=== PATIENT | female | born 1975 | race Caucasian/White ===

== ENCOUNTER 2018-04-13 22:03 | Inpatient (IN) | payer MEDICAID ==
[~2018-04-13] VITALS: Ht 167.6 cm; Wt 77.3 kg
[~2018-04-13 22:03] MED LIST: ALBU6.7H INH; BAC10T PO; DEXL60CA3 PO; DOCU-28 PO; DULR RC; MULT-227 PO; OXYB5TAB11 PO; VITC500T PO
[2018-04-13] MEDS ORDERED: normal saline 1000ML IV soln IV ONE (22:10)
[2018-04-13] MEDS ORDERED: CefTRIAXone 2gm/D5W 50ml 50 ML IV ONE (22:10)
[2018-04-13] MEDS ORDERED: HYOS0.1275 PO (22:52)
[2018-04-13] MEDS ORDERED: HYDR2TAB28 PO (22:52)
[2018-04-13] MEDS ORDERED: TIZA4TAB11 PO (22:52)
[2018-04-13] MEDS ORDERED: ONDA4TAB6 PO (22:52)
[2018-04-13] MEDS ORDERED: OXYC-658 PO (22:52)
[2018-04-13] MEDS ORDERED: ACET500C5 PO (22:52)
[2018-04-13] MEDS ORDERED: BACL20TA PO (22:52)
[2018-04-13] MEDS ORDERED: OXYB5TAB11 PO (22:52)
[2018-04-13] MEDS ORDERED: morphine 4 MG/ML inj SYRINge IV ONE (23:30)
[2018-04-13] MEDS ORDERED: ondansetron/PF 4mg/2ml inj IM ONE (23:30)
[2018-04-14] MEDS ORDERED: fentaNYL/PF 50MCG/1 ML 2ML syringe IV ONE (00:10)
[2018-04-14 01:49] LABS: BASOPHILS % (AUTO) 0.4 % (0-1); EOSINOPHILS # (AUTO) 0.3 X10'3 (0-0.9); EOSINOPHILS % (AUTO) 2.4 % (0-6); HEMATOCRIT 37.1 % (35.0-45.0); HEMOGLOBIN 11.9 g/dl (12.0-16.0); LYMPHOCYTES # (AUTO) 2.2 X10'3 (1.1-4.8); LYMPHOCYTES % (AUTO) 18.6 % (21-51); MEAN CORPUSCULAR HGB CONC 32.1 % (33.0-36.5); MEAN CORPUSCULAR VOLUME 84.1 FL (78-98); MEAN PLATELET VOLUME 8.9 FL (7.4-10.4); MONOCYTES # (AUTO) 0.5 X10'3 (0-0.9); MONOCYTES % (AUTO) 4.5 % (2-12); NEUTROPHILS % (AUTO) 74.1 % (42-75); PLATELET COUNT 371 X10'3 (140-440); RED BLOOD COUNT 4.41 X10'6 (4.20-5.60); RED CELL DISTRIBUTION WIDTH 13.9 % (11.5-14.5)
[2018-04-14 01:54] LABS: PARTIAL THROMBOPLASTIN TIME 29 SECONDS (22-32); PROTHROMBIN TIME 10.4 SECONDS (9.0-12.0)
[2018-04-14 01:58] LABS: ALANINE AMINOTRANSFERASE 16 U/L (12-78); ALBUMIN 2.6 G/DL (3.4-5.0); ALBUMIN/GLOBULIN RATIO 0.5 (1.1-1.5); ALKALINE PHOSPHATASE 70 IU/L (46-116); ANION GAP 16 (8-16); ASPARTATE AMINO TRANSFERASE 21 U/L (10-37); BILIRUBIN,TOTAL 0.3 MG/DL (0.1-1.0); BLOOD UREA NITROGEN 6 MG/DL (7-18); BUN/CREATININE RATIO 9.5 (6.6-38.0); CALCIUM 8.3 MG/DL (8.5-10.1); CHLORIDE 105 MMOL/L (99-107); CREATININE 0.63 MG/DL (0.40-0.90); GLUCOSE 70 MG/DL (70-104); MAGNESIUM 1.7 MG/DL (1.5-2.4); POTASSIUM 3.3 MMOL/L (3.5-5.1); SODIUM 140 MMOL/L (135-145); TOTAL CARBON DIOXIDE 19.5 MMOL/L (24-32); TOTAL PROTEIN 7.6 G/DL (6.4-8.2); eGFR > 90 ML/MIN
[2018-04-14] MEDS ORDERED: magnesium hydroxide 30ml (MOM) UD suspension PO PRN (02:05)
[2018-04-14] MEDS ORDERED: acetaminophen 325mg tablet PO PRN ×2 (02:05)
[2018-04-14] MEDS: normal saline 1000ml 1,000 ML IV SCH ×3 (02:05→22:05)
[2018-04-14] MEDS ORDERED: potassium Cl 20 mEq SR tablet PO PRN ×2 (02:05)
[2018-04-14] MEDS ORDERED: ondansetron/PF 4mg/2ml inj IV PRN (02:05)
[2018-04-14] MEDS ORDERED: potassium Cl 40MEQ/NS 500ml 500 ML IV PRN ×2 (02:05)
[2018-04-14] MEDS ORDERED: morphine 4 MG/ML inj SYRINge IV PRN (02:05)
[2018-04-14] MEDS ORDERED: diphenhydrAMINE 50 mg/ml inj IV PRN (02:05)
[2018-04-14] MEDS ORDERED: mag hydrox/Alum hydrox/simeth 30ml oral suspension PO PRN (02:05)
[2018-04-14 02:40] LABS: URINE HCG NEGATIVE (NEG)
[2018-04-14 02:41] LABS: CLARITY,URINE CLOUDY (Clear); COLOR,URINE AMBER (Yellow); GLUCOSE, URINE NEGATIVE (Neg); KETONES,URINE 40 mg/dl (Neg); LEUKOCYTE ESTERASE ,URINE MODERATE (Neg); NITRITES, URINE POSITIVE (Neg); OCCULT BLOOD,URINE MODERATE (Neg); PH,URINE >=9.0 (4.8-8.0); PROTEIN,URINE 100 mg/dl (Neg)
[2018-04-14 02:44] LABS: UA COLLECTION TYPE FOLEY CATH
[2018-04-14 03:00] VITALS: BP 131/84
[2018-04-14 03:07] LABS: BACTERIA,URINE 2+ /HPF (Neg); SQUAMOUS EPITHELIAL CELL,UR FEW /LPF (FEW)
[2018-04-14 03:08] LABS: TRIPLE PHOSPHATE CRYST 4+ /HPF (NEGATIVE)
[2018-04-14] MEDS: levoFLOXACIN-Levaquin 750MG/D5 150 ML IV SCH ×2 (03:09→20:43)
[2018-04-14] MEDS ORDERED: baclofen 10mg tablet PO PRN (03:10)
[2018-04-14] MEDS ORDERED: tizanidine 4mg tablet PO PRN (03:20)
[2018-04-14] MEDS: morphine 4 MG/ML inj SYRINge IV PRN ×4 (07:07→22:09)
[2018-04-14] MEDS: K and/or MAG REPLACEMENT MC SCH (07:10)
[2018-04-14] MEDS: ondansetron 4mg rapidly disintigrating tab PO SCH ×2 (07:13→16:47)
[2018-04-14 07:31] VITALS: BP 100/61
[2018-04-14] MEDS ORDERED: hyoscyamine 0.125mg TAB.SUBL SL SCH (08:00)
[2018-04-14] MEDS: enoxaparin 40mg/0.4ml syringe SUBCUT SCH (08:00)
[2018-04-14] MEDS: hyoscyamine 0.125mg TAB.SUBL SL SCH ×3 (08:46→20:44)
[2018-04-14] MEDS: baclofen 10mg tablet PO SCH ×4 (08:46→20:44)
[2018-04-14] MEDS: docusate sod 100mg capsule PO SCH ×2 (08:48→20:43)
[2018-04-14] MEDS: multivitamins, therapeutics tablet PO SCH (08:48)
[2018-04-14] MEDS: tizanidine 4mg tablet PO SCH ×3 (08:48→20:44)
[2018-04-14] MEDS: lactobacillus rhamnosus 10,000 MMU CELLS/CAPSULE PO SCH ×2 (08:48→20:43)
[2018-04-14] MEDS: oxybutynin 5mg tablet PO SCH ×3 (08:50→20:44)
[2018-04-14 19:30] VITALS: BP 114/77
[2018-04-14] MEDS ORDERED: temazepam 15mg capsule PO PRN (21:00)
[2018-04-14 23:30] VITALS: BP 135/88
[2018-04-15] MEDS: ondansetron 4mg rapidly disintigrating tab PO SCH ×3 (00:12→16:27)
[2018-04-15] MEDS: normal saline 1000ml 1,000 ML IV SCH ×3 (02:33→23:01)
[2018-04-15] MEDS: morphine 4 MG/ML inj SYRINge IV PRN ×5 (02:33→20:30)
[2018-04-15] MEDS: hyoscyamine 0.125mg TAB.SUBL SL SCH ×4 (02:33→20:30)
[2018-04-15] MEDS: tizanidine 4mg tablet PO SCH ×4 (02:48→20:36)
[2018-04-15] MEDS: baclofen 10mg tablet PO SCH ×4 (02:48→20:29)
[2018-04-15] MEDS: HYDROcodone/acetaminophen 5mg/325mg tablet PO PRN (04:45)
[2018-04-15 05:06] LABS: BASOPHILS % (AUTO) 0.5 % (0-1); EOSINOPHILS # (AUTO) 0.4 X10'3 (0-0.9); EOSINOPHILS % (AUTO) 6.2 % (0-6); HEMATOCRIT 33.1 % (35.0-45.0); HEMOGLOBIN 10.9 g/dl (12.0-16.0); LYMPHOCYTES # (AUTO) 1.5 X10'3 (1.1-4.8); LYMPHOCYTES % (AUTO) 20.5 % (21-51); MEAN CORPUSCULAR HEMOGLOBIN 27.6 PG (27.0-31.0); MEAN CORPUSCULAR VOLUME 83.6 FL (78-98); MEAN PLATELET VOLUME 8.5 FL (7.4-10.4); MONOCYTES # (AUTO) 0.5 X10'3 (0-0.9); MONOCYTES % (AUTO) 7.3 % (2-12); NEUTROPHILS # (AUTO) 4.8 X10'3 (1.8-7.7); NEUTROPHILS % (AUTO) 65.5 % (42-75); PLATELET COUNT 334 X10'3 (140-440); RED BLOOD COUNT 3.96 X10'6 (4.20-5.60); WHITE BLOOD COUNT 7.3 X10'3 (4.5-11.0)
[2018-04-15 05:21] LABS: ALBUMIN 2.2 G/DL (3.4-5.0); ANION GAP 9 (8-16); BLOOD UREA NITROGEN 4 MG/DL (7-18); CALCIUM 8.4 MG/DL (8.5-10.1); CHLORIDE 107 MMOL/L (99-107); GLUCOSE 81 MG/DL (70-104); POTASSIUM 3.7 MMOL/L (3.5-5.1); SODIUM 138 MMOL/L (135-145); TOTAL CARBON DIOXIDE 21.7 MMOL/L (24-32); eGFR > 90 ML/MIN
[2018-04-15 07:04] VITALS: BP 131/77
[2018-04-15] MEDS: K and/or MAG REPLACEMENT MC SCH (07:23)
[2018-04-15] MEDS: lactobacillus rhamnosus 10,000 MMU CELLS/CAPSULE PO SCH ×2 (07:35→20:28)
[2018-04-15] MEDS: multivitamins, therapeutics tablet PO SCH (07:35)
[2018-04-15] MEDS: oxybutynin 5mg tablet PO SCH ×3 (07:35→20:29)
[2018-04-15] MEDS: docusate sod 100mg capsule PO SCH ×2 (07:35→20:30)
[2018-04-15] MEDS: enoxaparin 40mg/0.4ml syringe SUBCUT SCH (07:41)
[2018-04-15 11:36] VITALS: BP 96/57
[2018-04-15] MEDS ORDERED: sulfacetamide 10% ophthalmic oint 3.5gm LEFTEYE SCH (16:00)
[2018-04-15] MEDS: sulfacetamide sodium 10% ophthalmic drops 5ML BOTTLE LEFTEYE SCH ×2 (16:27→20:31)
[2018-04-15 16:36] VITALS: BP 144/89
[2018-04-15 18:00] VITALS: BP 144/95
[2018-04-15 19:56] LABS: ABG BASE EXCESS -2.9 mmol/L (-2.0-3.0); ABG HCO3 21.4 mmol/L (22.0-26.0); ABG OXYGEN SATURATION 97.7 % (95-98); ABG PCO2 (T) 34.2 mmHg (32.0-45.0); ABG PO2 (T) 102.8 mmHg (83-108); FCOHb 0.3 % (0.5-1.5); FLOW 3 L/min; FMetHb 0.1 % (0.3-1.12); FO2Hb 97.3 % (94-100); PATIENT TEMPERATURE 36.3; RESPIRATORY RATE (OBSERVED) 22 b/min; TOTAL HEMOGLOBIN 11.7 G/dl (12.0-16.0)
[2018-04-15] MEDS: levoFLOXACIN-Levaquin 750MG/D5 150 ML IV SCH (20:31)
[2018-04-15 22:46] LABS: D-DIMER 1.13 MG/L FEU (0-0.50)
[2018-04-16] VITALS: BP 145/88
[2018-04-16] MEDS: sulfacetamide sodium 10% ophthalmic drops 5ML BOTTLE LEFTEYE SCH ×6 (00:07→19:41)
[2018-04-16] MEDS: ondansetron 4mg rapidly disintigrating tab PO SCH ×3 (00:07→15:36)
[2018-04-16] MEDS: morphine 4 MG/ML inj SYRINge IV PRN ×6 (00:15→20:45)
[2018-04-16] MEDS ORDERED: iohexol 350MG/ML 100ml bottle IV ONE (01:13)
[2018-04-16] MEDS: hyoscyamine 0.125mg TAB.SUBL SL SCH ×4 (02:40→19:43)
[2018-04-16] MEDS: tizanidine 4mg tablet PO SCH ×4 (02:40→19:42)
[2018-04-16] MEDS: baclofen 10mg tablet PO SCH ×4 (02:40→19:42)
[2018-04-16 06:56] VITALS: BP 115/81
[2018-04-16] MEDS: enoxaparin 40mg/0.4ml syringe SUBCUT SCH (07:20)
[2018-04-16] MEDS: K and/or MAG REPLACEMENT MC SCH (08:00)
[2018-04-16] MEDS: multivitamins, therapeutics tablet PO SCH (08:03)
[2018-04-16] MEDS: lactobacillus rhamnosus 10,000 MMU CELLS/CAPSULE PO SCH ×2 (08:04→19:42)
[2018-04-16] MEDS: oxybutynin 5mg tablet PO SCH ×3 (08:04→20:44)
[2018-04-16] MEDS: docusate sod 100mg capsule PO SCH ×2 (08:04→19:42)
[2018-04-16] MEDS: normal saline 1000ml 1,000 ML IV SCH ×2 (08:12→16:55)
[2018-04-16] MEDS ORDERED: bisacodyl 10mg suppository rectal RC ONE (09:30)
[2018-04-16 10:40] LABS: BASOPHILS % (AUTO) 0.4 % (0-1); EOSINOPHILS # (AUTO) 0.3 X10'3 (0-0.9); HEMATOCRIT 31.7 % (35.0-45.0); HEMOGLOBIN 10.5 g/dl (12.0-16.0); LYMPHOCYTES # (AUTO) 1.4 X10'3 (1.1-4.8); LYMPHOCYTES % (AUTO) 20.8 % (21-51); MEAN CORPUSCULAR HEMOGLOBIN 27.5 PG (27.0-31.0); MEAN CORPUSCULAR HGB CONC 33.2 % (33.0-36.5); MEAN PLATELET VOLUME 7.8 FL (7.4-10.4); MONOCYTES # (AUTO) 0.5 X10'3 (0-0.9); MONOCYTES % (AUTO) 8.2 % (2-12); NEUTROPHILS # (AUTO) 4.3 X10'3 (1.8-7.7); NEUTROPHILS % (AUTO) 65.6 % (42-75); PLATELET COUNT 359 X10'3 (140-440); RED BLOOD COUNT 3.81 X10'6 (4.20-5.60); RED CELL DISTRIBUTION WIDTH 14.6 % (11.5-14.5); WHITE BLOOD COUNT 6.5 X10'3 (4.5-11.0)
[2018-04-16 10:50] LABS: ALBUMIN 2.3 G/DL (3.4-5.0); ANION GAP 6 (8-16); BLOOD UREA NITROGEN 2 MG/DL (7-18); CALCIUM 8.3 MG/DL (8.5-10.1); CHLORIDE 108 MMOL/L (99-107); GLUCOSE 86 MG/DL (70-104); POTASSIUM 3.7 MMOL/L (3.5-5.1); SODIUM 140 MMOL/L (135-145); TOTAL CARBON DIOXIDE 25.9 MMOL/L (24-32); eGFR > 90 ML/MIN
[2018-04-16 11:29] VITALS: BP 117/71
[2018-04-16] MEDS ORDERED: bisacodyl 5mg tablet.DR PO PRN (13:05)
[2018-04-16] MEDS ORDERED: magnesium hydroxide 30ml (MOM) UD suspension PO PRN (13:05)
[2018-04-16 18:00] VITALS: BP 119/74
[2018-04-16] MEDS ORDERED: docusate sod 100mg capsule PO SCH (20:00)
[2018-04-16] MEDS: levoFLOXACIN-Levaquin 750MG/D5 150 ML IV SCH (20:44)
[2018-04-17] VITALS: BP 139/94
[2018-04-17] MEDS: sulfacetamide sodium 10% ophthalmic drops 5ML BOTTLE LEFTEYE SCH ×6 (01:02→20:12)
[2018-04-17] MEDS: ondansetron 4mg rapidly disintigrating tab PO SCH ×3 (01:02→17:09)
[2018-04-17] MEDS: morphine 4 MG/ML inj SYRINge IV PRN ×6 (01:03→21:58)
[2018-04-17] MEDS: hyoscyamine 0.125mg TAB.SUBL SL SCH ×4 (01:51→20:10)
[2018-04-17] MEDS: baclofen 10mg tablet PO SCH ×4 (01:51→20:09)
[2018-04-17] MEDS: tizanidine 4mg tablet PO SCH ×4 (01:51→20:10)
[2018-04-17] MEDS: normal saline 1000ml 1,000 ML IV SCH ×2 (03:36→14:13)
[2018-04-17 06:12] LABS: ALBUMIN 2.3 G/DL (3.4-5.0); ANION GAP 4 (8-16); BLOOD UREA NITROGEN 3 MG/DL (7-18); BUN/CREATININE RATIO 7.1 (6.6-38.0); CALCIUM 8.3 MG/DL (8.5-10.1); CHLORIDE 105 MMOL/L (99-107); CREATININE 0.42 MG/DL (0.40-0.90); GLUCOSE 87 MG/DL (70-104); POTASSIUM 3.8 MMOL/L (3.5-5.1); SODIUM 136 MMOL/L (135-145); TOTAL CARBON DIOXIDE 26.6 MMOL/L (24-32); eGFR > 90 ML/MIN
[2018-04-17 06:28] LABS: BASOPHILS # (AUTO) 0.1 X10'3 (0-0.2); BASOPHILS % (AUTO) 1.3 % (0-1); EOSINOPHILS # (AUTO) 0.3 X10'3 (0-0.9); EOSINOPHILS % (AUTO) 4.2 % (0-6); HEMATOCRIT 34.3 % (35.0-45.0); HEMOGLOBIN 11.5 g/dl (12.0-16.0); LYMPHOCYTES # (AUTO) 1.8 X10'3 (1.1-4.8); MEAN CORPUSCULAR HEMOGLOBIN 27.6 PG (27.0-31.0); MEAN CORPUSCULAR HGB CONC 33.5 % (33.0-36.5); MEAN CORPUSCULAR VOLUME 82.3 FL (78-98); MEAN PLATELET VOLUME 8.9 FL (7.4-10.4); MONOCYTES # (AUTO) 0.6 X10'3 (0-0.9); MONOCYTES % (AUTO) 7.1 % (2-12); NEUTROPHILS # (AUTO) 5.4 X10'3 (1.8-7.7); NEUTROPHILS % (AUTO) 65.4 % (42-75); PLATELET COUNT 338 X10'3 (140-440); RED BLOOD COUNT 4.17 X10'6 (4.20-5.60); RED CELL DISTRIBUTION WIDTH 14.9 % (11.5-14.5); WHITE BLOOD COUNT 8.2 X10'3 (4.5-11.0)
[2018-04-17] MEDS: K and/or MAG REPLACEMENT MC SCH (07:45)
[2018-04-17] MEDS: multivitamins, therapeutics tablet PO SCH (07:51)
[2018-04-17] MEDS: docusate sod 100mg capsule PO SCH ×2 (07:51→20:09)
[2018-04-17] MEDS: lactobacillus rhamnosus 10,000 MMU CELLS/CAPSULE PO SCH ×2 (07:52→20:09)
[2018-04-17] MEDS: oxybutynin 5mg tablet PO SCH ×3 (07:52→20:11)
[2018-04-17] MEDS: enoxaparin 40mg/0.4ml syringe SUBCUT SCH (07:53)
[2018-04-17 08:00] VITALS: BP 154/77
[2018-04-17 12:00] VITALS: BP 139/88
[2018-04-17] MEDS ORDERED: magnesium citrate 296ml oral solution PO ONE (14:40)
[2018-04-17] MEDS ORDERED: diphenhydrAMINE 25 MG/10 ML UD oral solution PO PRN (16:45)
[2018-04-17] MEDS: CefTRIAXone/D5W-Rocephin 1gm 50 ML IV SCH (17:08)
[2018-04-17 20:00] VITALS: BP 146/81
[2018-04-18] VITALS: BP 144/85
[2018-04-18] MEDS: ondansetron 4mg rapidly disintigrating tab PO SCH ×4 (00:16→23:23)
[2018-04-18] MEDS: sulfacetamide sodium 10% ophthalmic drops 5ML BOTTLE LEFTEYE SCH ×7 (00:20→23:29)
[2018-04-18] MEDS: baclofen 10mg tablet PO SCH ×4 (02:05→20:31)
[2018-04-18] MEDS: tizanidine 4mg tablet PO SCH ×4 (02:06→20:32)
[2018-04-18] MEDS: hyoscyamine 0.125mg TAB.SUBL SL SCH ×4 (02:06→20:32)
[2018-04-18] MEDS: morphine 4 MG/ML inj SYRINge IV PRN ×2 (02:11→07:34)
[2018-04-18 06:25] LABS: BASOPHILS % (AUTO) 0.4 % (0-1); EOSINOPHILS # (AUTO) 0.3 X10'3 (0-0.9); HEMATOCRIT 35.4 % (35.0-45.0); HEMOGLOBIN 11.7 g/dl (12.0-16.0); LYMPHOCYTES # (AUTO) 2.4 X10'3 (1.1-4.8); LYMPHOCYTES % (AUTO) 27.5 % (21-51); MEAN CORPUSCULAR HEMOGLOBIN 27.6 PG (27.0-31.0); MEAN CORPUSCULAR HGB CONC 33.1 % (33.0-36.5); MEAN CORPUSCULAR VOLUME 83.2 FL (78-98); MEAN PLATELET VOLUME 8.1 FL (7.4-10.4); MONOCYTES # (AUTO) 0.7 X10'3 (0-0.9); MONOCYTES % (AUTO) 8.4 % (2-12); NEUTROPHILS # (AUTO) 5.2 X10'3 (1.8-7.7); NEUTROPHILS % (AUTO) 59.7 % (42-75); PLATELET COUNT 389 X10'3 (140-440); RED BLOOD COUNT 4.26 X10'6 (4.20-5.60); RED CELL DISTRIBUTION WIDTH 15.2 % (11.5-14.5); WHITE BLOOD COUNT 8.7 X10'3 (4.5-11.0)
[2018-04-18 06:48] LABS: ALBUMIN 2.8 G/DL (3.4-5.0); ANION GAP 9 (8-16); BLOOD UREA NITROGEN 3 MG/DL (7-18); BUN/CREATININE RATIO 5.8 (6.6-38.0); CALCIUM 9.2 MG/DL (8.5-10.1); CHLORIDE 103 MMOL/L (99-107); CREATININE 0.52 MG/DL (0.40-0.90); GLUCOSE 83 MG/DL (70-104); POTASSIUM 4.2 MMOL/L (3.5-5.1); SODIUM 139 MMOL/L (135-145); eGFR > 90 ML/MIN
[2018-04-18] MEDS: CefTRIAXone/D5W-Rocephin 1gm 50 ML IV SCH (07:35)
[2018-04-18] MEDS: lactobacillus rhamnosus 10,000 MMU CELLS/CAPSULE PO SCH ×2 (07:39→20:31)
[2018-04-18] MEDS: docusate sod 100mg capsule PO SCH ×2 (07:40→20:31)
[2018-04-18] MEDS: K and/or MAG REPLACEMENT MC SCH (07:40)
[2018-04-18] MEDS: multivitamins, therapeutics tablet PO SCH (07:40)
[2018-04-18] MEDS: oxybutynin 5mg tablet PO SCH ×3 (07:40→20:32)
[2018-04-18] MEDS: enoxaparin 40mg/0.4ml syringe SUBCUT SCH (07:41)
[2018-04-18 08:00] VITALS: BP 118/84
[2018-04-18] MEDS: HYDROcodone/acetaminophen 10/325mg tab PO PRN (11:29)
[2018-04-18 12:00] VITALS: BP 95/61
[2018-04-18] MEDS: metoclopramide 5 mg/ml inj IV SCH ×3 (13:17→20:31)
[2018-04-18] MEDS ORDERED: metoclopramide 10mg tablet PO SCH (14:00)
[2018-04-18] MEDS: HYDROcodone/acetaminophen 5mg/325mg tablet PO PRN ×2 (16:39→20:33)
[2018-04-18 19:00] VITALS: BP 104/77
[2018-04-19] VITALS: BP 109/61
[2018-04-19] MEDS: metoclopramide 5 mg/ml inj IV SCH ×3 (01:56→11:29)
[2018-04-19] MEDS: baclofen 10mg tablet PO SCH ×3 (01:57→13:21)
[2018-04-19] MEDS: tizanidine 4mg tablet PO SCH ×3 (02:01→13:20)
[2018-04-19] MEDS: hyoscyamine 0.125mg TAB.SUBL SL SCH ×3 (02:02→13:20)
[2018-04-19] MEDS: HYDROcodone/acetaminophen 10/325mg tab PO PRN ×2 (02:03→09:50)
[2018-04-19] MEDS: sulfacetamide sodium 10% ophthalmic drops 5ML BOTTLE LEFTEYE SCH ×3 (03:27→11:28)
[2018-04-19 05:25] LABS: BASOPHILS % (AUTO) 0.3 % (0-1); EOSINOPHILS # (AUTO) 0.3 X10'3 (0-0.9); EOSINOPHILS % (AUTO) 3.6 % (0-6); HEMATOCRIT 39.1 % (35.0-45.0); HEMOGLOBIN 12.9 g/dl (12.0-16.0); LYMPHOCYTES # (AUTO) 2.1 X10'3 (1.1-4.8); LYMPHOCYTES % (AUTO) 29.4 % (21-51); MEAN CORPUSCULAR HEMOGLOBIN 27.5 PG (27.0-31.0); MEAN CORPUSCULAR HGB CONC 32.9 % (33.0-36.5); MEAN CORPUSCULAR VOLUME 83.4 FL (78-98); MEAN PLATELET VOLUME 7.9 FL (7.4-10.4); MONOCYTES # (AUTO) 0.6 X10'3 (0-0.9); NEUTROPHILS # (AUTO) 4.1 X10'3 (1.8-7.7); NEUTROPHILS % (AUTO) 57.7 % (42-75); PLATELET COUNT 448 X10'3 (140-440); RED BLOOD COUNT 4.69 X10'6 (4.20-5.60); RED CELL DISTRIBUTION WIDTH 15.2 % (11.5-14.5); WHITE BLOOD COUNT 7.1 X10'3 (4.5-11.0)
[2018-04-19 05:41] LABS: ALBUMIN 2.9 G/DL (3.4-5.0); ANION GAP 8 (8-16); BLOOD UREA NITROGEN 7 MG/DL (7-18); BUN/CREATININE RATIO 11.9 (6.6-38.0); CALCIUM 9.7 MG/DL (8.5-10.1); CHLORIDE 103 MMOL/L (99-107); CREATININE 0.59 MG/DL (0.40-0.90); GLUCOSE 95 MG/DL (70-104); POTASSIUM 4.8 MMOL/L (3.5-5.1); SODIUM 138 MMOL/L (135-145); eGFR > 90 ML/MIN
[2018-04-19 07:16] VITALS: BP 139/89
[2018-04-19] MEDS: K and/or MAG REPLACEMENT MC SCH (08:00)
[2018-04-19] MEDS: enoxaparin 40mg/0.4ml syringe SUBCUT SCH (08:00)
[2018-04-19] MEDS: CefTRIAXone/D5W-Rocephin 1gm 50 ML IV SCH (09:43)
[2018-04-19] MEDS: oxybutynin 5mg tablet PO SCH ×2 (09:45→13:21)
[2018-04-19] MEDS: multivitamins, therapeutics tablet PO SCH (09:45)
[2018-04-19] MEDS: lactobacillus rhamnosus 10,000 MMU CELLS/CAPSULE PO SCH (09:45)
[2018-04-19] MEDS: docusate sod 100mg capsule PO SCH (09:46)
[2018-04-19] MEDS: ondansetron 4mg rapidly disintigrating tab PO SCH (09:49)
[2018-04-19 10:44] VITALS: BP 86/59
[2018-04-19] MEDS ORDERED: LACT1CAP26 PO (12:09)
[2018-04-19] MEDS ORDERED: HYDR-569 PO ×2 (12:24→12:53)
[2018-04-19] MEDS ORDERED: LINE600T36 PO ×2 (12:24→12:53)
[2018-04-19] MEDS ORDERED: VALA10002 PO ×2 (12:24→12:53)
[2018-04-19] MEDS ORDERED: CEFD300C3 PO (12:53)
[2018-04-19] MEDS ORDERED: valacyclovir 500mg tablet PO SCH (16:00)
[2018-04-19] MEDS ORDERED: linezolid 600mg tablet PO SCH (20:00)
== END 2018-04-19 15:24 | disposition home or self-care (01) | DRG 140 ==
LOC: ER 22:04 → ED HOLD 04-14 02:05 → SUR 3N 04-14 02:50
PROVIDERS: ADMIT Hospitalist; ATTEND Internal Medicine
PROC: B3201ZZ Computerized Tomography (CT Scan) of Thoracic Aorta using Low Osmolar Contrast (ICD-10-PCS; principal; 2018-04-16)
DX: J44.0 Chronic obstructive pulmonary disease with (acute) lower respiratory infection (principal); G82.50 Quadriplegia, unspecified; J18.9 Pneumonia, unspecified organism; K56.609 Unspecified intestinal obstruction, unspecified as to partial versus complete obstruction; L89.219 Pressure ulcer of right hip, unspecified stage; Z86.74 Personal history of sudden cardiac arrest; E11.9 Type 2 diabetes mellitus without complications; B95.2 Enterococcus as the cause of diseases classified elsewhere; B95.8 Unspecified staphylococcus as the cause of diseases classified elsewhere; F17.200 Nicotine dependence, unspecified, uncomplicated; D64.9 Anemia, unspecified; K59.00 Constipation, unspecified; B96.20 Unspecified Escherichia coli [E. coli] as the cause of diseases classified elsewhere; B96.4 Proteus (mirabilis) (morganii) as the cause of diseases classified elsewhere; K21.9 Gastro-esophageal reflux disease without esophagitis; H10.9 Unspecified conjunctivitis; M85.80 Other specified disorders of bone density and structure, unspecified site; N39.0 Urinary tract infection, site not specified; F11.23 Opioid dependence with withdrawal; R09.02 Hypoxemia; F12.90 Cannabis use, unspecified, uncomplicated; F32.9 Major depressive disorder, single episode, unspecified; F41.9 Anxiety disorder, unspecified; G89.29 Other chronic pain; Z86.73 Personal history of transient ischemic attack (TIA), and cerebral infarction without residual deficits; I25.2 Old myocardial infarction; Z88.5 Allergy status to narcotic agent; Z88.8 Allergy status to other drugs, medicaments and biological substances; Z88.6 Allergy status to analgesic agent; Z91.012 Allergy to eggs; Z90.49 Acquired absence of other specified parts of digestive tract
CPT/HCPCS: 36415; 36600; 71045; 71275; 73502; 74018; 74176; 80048; 80053; 81001; 81025; 82803; 83605; 83735; 84145; 84484; 85018; 85025; 85379; 85610; 85730; 87040; 87070; 87077; 87088; 87186; 93005; 96361; 96365; 96372; 96375; 99285; A4315; A4649; A6196; A6212; A6213; A6449; J0696; J1650; J1956; J2270; J2405; J2765; J3010; J3480; J7030; Q0163; Q9967

== ENCOUNTER 2018-07-30 16:55 | Inpatient (IN) | payer MEDICAID ==
[~2018-07-30] VITALS: Ht 167.6 cm; Wt 69.2 kg
[~2018-07-30 16:55] MED LIST changes: +ACET500C5 PO; -ALBU6.7H INH; +CEFD300C3 PO; -DEXL60CA3 PO; -DULR RC; +HYDR-4383 PO; +HYOS0.1275 PO; +LACT1CAP26 PO; +ONDA4TAB6 PO; +TIZA4TAB11 PO; +VALA10002 PO; -VITC500T PO
[2018-07-30] MEDS ORDERED: normal saline 1000ML IV soln IV ONE (17:05)
[2018-07-30] MEDS: metoprolol tartrate 1mg/ml inj IV ONE ×2 (17:05→18:36)
[2018-07-30] MEDS ORDERED: levoFLOXACIN-Levaquin 750MG/D5 150 ML IV ONE (17:05)
[2018-07-30] MEDS ORDERED: LORazepam 2 mg/ml vial IV ONE ×2 (17:10→18:35)
[2018-07-30] MEDS ORDERED: fentaNYL/PF 50MCG/1 ML 2ML syringe IV ONE (17:15)
[2018-07-30 17:20] LABS: BASOPHILS # (AUTO) 0.1 X10'3 (0-0.2); BASOPHILS % (AUTO) 0.5 % (0-1); EOSINOPHILS # (AUTO) 0.1 X10'3 (0-0.9); EOSINOPHILS % (AUTO) 1.3 % (0-6); HEMATOCRIT 46.7 % (35.0-45.0); HEMOGLOBIN 15.1 g/dl (12.0-16.0); LYMPHOCYTES % (AUTO) 17.8 % (21-51); MEAN CORPUSCULAR HGB CONC 32.3 % (33.0-36.5); MEAN CORPUSCULAR VOLUME 83.6 FL (78-98); MEAN PLATELET VOLUME 8.4 FL (7.4-10.4); MONOCYTES # (AUTO) 0.5 X10'3 (0-0.9); MONOCYTES % (AUTO) 4.7 % (2-12); NEUTROPHILS # (AUTO) 8.4 X10'3 (1.8-7.7); NEUTROPHILS % (AUTO) 75.7 % (42-75); PLATELET COUNT 571 X10'3 (140-440); RED BLOOD COUNT 5.59 X10'6 (4.20-5.60); RED CELL DISTRIBUTION WIDTH 16.5 % (11.5-14.5); WHITE BLOOD COUNT 11.1 X10'3 (4.5-11.0)
[2018-07-30 17:35] LABS: ALANINE AMINOTRANSFERASE 36 U/L (12-78); ALBUMIN 3.6 G/DL (3.4-5.0); ALBUMIN/GLOBULIN RATIO 0.7 (1.1-1.5); ALKALINE PHOSPHATASE 110 IU/L (46-116); ANION GAP 14 (8-16); ASPARTATE AMINO TRANSFERASE 29 U/L (10-37); BILIRUBIN,TOTAL 0.4 MG/DL (0.1-1.0); BLOOD UREA NITROGEN 9 MG/DL (7-18); BUN/CREATININE RATIO 16.1 (6.6-38.0); CALCIUM 9.5 MG/DL (8.5-10.1); CHLORIDE 101 MMOL/L (99-107); CREATININE 0.56 MG/DL (0.40-0.90); GLUCOSE 83 MG/DL (70-104); SODIUM 139 MMOL/L (135-145); TOTAL CARBON DIOXIDE 24.1 MMOL/L (24-32); TOTAL PROTEIN 9.1 G/DL (6.4-8.2); eGFR > 90 ML/MIN
[2018-07-30 17:43] LABS: MAGNESIUM 2.2 MG/DL (1.5-2.4)
[2018-07-30] MEDS ORDERED: heparin 25,000 UNIT/250ml bag 250 ML IV SCH ×2 (18:32→18:36)
[2018-07-30] MEDS ORDERED: heparin 10,000 units/1 ML INJ IV PRN (18:35)
[2018-07-30] MEDS ORDERED: heparin 10,000 units/1 ML INJ IV ONE (18:35)
[2018-07-30] MEDS ORDERED: LORazepam 2 mg/ml vial ONE (18:36)
[2018-07-30] MEDS ORDERED: midazolam 2 mg/2 ml injection ONE (18:46)
[2018-07-30] MEDS ORDERED: MIDAZolam 5mg/ml 2ml vial IV ONE (18:50)
[2018-07-30 19:10] LABS: CLARITY,URINE TURBID (Clear); COLOR,URINE YELLOW (Yellow); GLUCOSE, URINE NEGATIVE (Neg); KETONES,URINE 15 mg/dl (Neg); LEUKOCYTE ESTERASE ,URINE MODERATE (Neg); NITRITES, URINE POSITIVE (Neg); OCCULT BLOOD,URINE LARGE (Neg); PH,URINE >=9.0 (4.8-8.0); PROTEIN,URINE 30 mg/dl (Neg); UROBILINOGEN,URINE 0.2 E.U/dL (0.2-1.0)
[2018-07-30 19:13] LABS: UA COLLECTION TYPE STRAIGHT CATH
[2018-07-30 19:30] LABS: AMORPHOUS PHOSPHATES 3+; BACTERIA,URINE 3+ /HPF (Neg); MUCUS STRANDS NONE SEEN /LPF (Neg); SQUAMOUS EPITHELIAL CELL,UR NONE SEEN /LPF (FEW); TRANSITIONAL EPI CELLS,URINE FEW /HPF; TRIPLE PHOSPHATE CRYST 2+ /HPF (NEGATIVE); WBC,URINE TNTC /HPF (0-4)
[2018-07-30 19:49] LABS: PARTIAL THROMBOPLASTIN TIME 29 SECONDS (22-32); PROTHROMBIN TIME 10.5 SECONDS (9.0-12.0)
[2018-07-30] MEDS ORDERED: UNABLE TO OBTAIN (20:35)
[2018-07-30] MEDS: normal saline 1000ml 1,000 ML IV SCH (20:56)
[2018-07-30] MEDS ORDERED: NORepinephrine 8mg/ 250ml NS 250 ML IV SCH (21:10)
[2018-07-30] MEDS ORDERED: potassium Cl 40MEQ/250ML bag 250 ML IV PRN ×2 (21:55)
[2018-07-30] MEDS ORDERED: potassium Cl 20 mEq SR tablet PO PRN (21:55)
[2018-07-30] MEDS ORDERED: ipratropium/albuterol 3ml nebule NEB PRN (21:55)
[2018-07-30] MEDS: morphine 2 MG/ML inj. syringe IV PRN (22:42)
[2018-07-30 23:00] VITALS: BP 114/83
[2018-07-31] VITALS (24 sets, daily range): BP systolic 74–140; BP diastolic 55–100
[2018-07-31] MEDS: cefepime 1GM/NS ADD-VANTAGE 100 ML IV SCH ×4 (00:31→23:26)
[2018-07-31] MEDS: morphine 2 MG/ML inj. syringe IV PRN ×2 (03:16→07:42)
[2018-07-31 03:40] LABS: ALANINE AMINOTRANSFERASE 25 U/L (12-78); ALBUMIN 2.5 G/DL (3.4-5.0); ALBUMIN/GLOBULIN RATIO 0.6 (1.1-1.5); ALKALINE PHOSPHATASE 75 IU/L (46-116); ANION GAP 10 (8-16); ASPARTATE AMINO TRANSFERASE 38 U/L (10-37); BILIRUBIN,TOTAL 0.3 MG/DL (0.1-1.0); BLOOD UREA NITROGEN 5 MG/DL (7-18); BUN/CREATININE RATIO 12.2 (6.6-38.0); CALCIUM 7.9 MG/DL (8.5-10.1); CHLORIDE 110 MMOL/L (99-107); CREATININE 0.41 MG/DL (0.40-0.90); GLUCOSE 72 MG/DL (70-104); POTASSIUM 3.9 MMOL/L (3.5-5.1); SODIUM 144 MMOL/L (135-145); TOTAL CARBON DIOXIDE 23.9 MMOL/L (24-32); TOTAL PROTEIN 6.4 G/DL (6.4-8.2); eGFR > 90 ML/MIN
[2018-07-31] MEDS: heparin 10,000 units/1 ML INJ IV PRN ×2 (03:49→21:14)
[2018-07-31] MEDS: heparin 25,000 UNIT/250ml bag 250 ML IV SCH ×2 (03:52→23:28)
[2018-07-31] MEDS: metoprolol tartrate 1mg/ml inj IV SCH ×7 (04:00→23:29)
[2018-07-31] MEDS: pantoprazole 40mg Tablet.DR PO SCH (07:42)
[2018-07-31] MEDS: docusate sod 100mg capsule PO SCH ×2 (07:53→19:01)
[2018-07-31] MEDS: multivitamins, therapeutics tablet PO SCH (07:53)
[2018-07-31] MEDS: lactobacillus rhamnosus 10,000 MMU CELLS/CAPSULE PO SCH ×2 (07:53→19:01)
[2018-07-31] MEDS: K, MAG and/or Phos replacement - Verify level? MC SCH (08:00)
[2018-07-31] MEDS: normal saline 1000ml 1,000 ML IV SCH ×3 (10:20→23:25)
[2018-07-31] MEDS ORDERED: HYDROmorphone/NS 1 mg/ml CADD 50 ML IV SCH (10:20)
[2018-07-31] MEDS ORDERED: naloxone 0.4 mg/ml inj IV PRN (10:25)
[2018-07-31] MEDS ORDERED: CADD PCA waste documentation MC SCH (10:25)
[2018-07-31] MEDS: HYDROmorphone/NS 1 mg/ml CADD 50 ML IV SCH ×7 (10:41→23:00)
[2018-07-31] MEDS: ondansetron/PF 4mg/2ml inj IV PRN (16:36)
[2018-07-31] MEDS ORDERED: LORazepam 2 mg/ml vial IV ONE (18:30)
[2018-08-01] VITALS (24 sets, daily range): BP systolic 78–108; BP diastolic 52–78
[2018-08-01] MEDS: HYDROmorphone/NS 1 mg/ml CADD 50 ML IV SCH ×12 (01:00→23:00)
[2018-08-01 03:31] LABS: BASOPHILS % (AUTO) 0.2 % (0-1); EOSINOPHILS # (AUTO) 0.3 X10'3 (0-0.9); EOSINOPHILS % (AUTO) 3.3 % (0-6); HEMATOCRIT 33.9 % (35.0-45.0); HEMOGLOBIN 10.9 g/dl (12.0-16.0); LYMPHOCYTES # (AUTO) 2.9 X10'3 (1.1-4.8); LYMPHOCYTES % (AUTO) 27.4 % (21-51); MEAN CORPUSCULAR HEMOGLOBIN 27.1 PG (27.0-31.0); MEAN CORPUSCULAR HGB CONC 32.1 % (33.0-36.5); MEAN CORPUSCULAR VOLUME 84.4 FL (78-98); MONOCYTES # (AUTO) 0.7 X10'3 (0-0.9); MONOCYTES % (AUTO) 6.4 % (2-12); NEUTROPHILS # (AUTO) 6.6 X10'3 (1.8-7.7); NEUTROPHILS % (AUTO) 62.7 % (42-75); PLATELET COUNT 396 X10'3 (140-440); RED BLOOD COUNT 4.01 X10'6 (4.20-5.60); RED CELL DISTRIBUTION WIDTH 16.5 % (11.5-14.5); WHITE BLOOD COUNT 10.6 X10'3 (4.5-11.0)
[2018-08-01 03:49] LABS: ALANINE AMINOTRANSFERASE 23 U/L (12-78); ALBUMIN 2.3 G/DL (3.4-5.0); ALBUMIN/GLOBULIN RATIO 0.7 (1.1-1.5); ALKALINE PHOSPHATASE 81 IU/L (46-116); ANION GAP 10 (8-16); ASPARTATE AMINO TRANSFERASE 37 U/L (10-37); BILIRUBIN,TOTAL 0.3 MG/DL (0.1-1.0); BLOOD UREA NITROGEN 3 MG/DL (7-18); BUN/CREATININE RATIO 6.7 (6.6-38.0); CALCIUM 8.1 MG/DL (8.5-10.1); CHLORIDE 106 MMOL/L (99-107); CREATININE 0.45 MG/DL (0.40-0.90); GLUCOSE 62 MG/DL (70-104); POTASSIUM 3.7 MMOL/L (3.5-5.1); SODIUM 139 MMOL/L (135-145); TOTAL PROTEIN 5.8 G/DL (6.4-8.2); eGFR > 90 ML/MIN
[2018-08-01] MEDS: metoprolol tartrate 1mg/ml inj IV SCH ×6 (04:00→23:09)
[2018-08-01] MEDS: K, MAG and/or Phos replacement - Verify level? MC SCH (08:00)
[2018-08-01] MEDS: baclofen 10mg tablet PO PRN ×2 (08:00→16:09)
[2018-08-01] MEDS: cefepime 1GM/NS ADD-VANTAGE 100 ML IV SCH ×2 (08:14→16:07)
[2018-08-01] MEDS: lactobacillus rhamnosus 10,000 MMU CELLS/CAPSULE PO SCH ×2 (08:14→19:09)
[2018-08-01] MEDS: pantoprazole 40mg Tablet.DR PO SCH (08:15)
[2018-08-01] MEDS: clopidogrel 75mg tablet PO SCH (08:15)
[2018-08-01] MEDS: docusate sod 100mg capsule PO SCH ×2 (08:15→19:10)
[2018-08-01] MEDS: multivitamins, therapeutics tablet PO SCH (08:15)
[2018-08-01] MEDS: heparin 25,000 UNIT/250ml bag 250 ML IV SCH (08:34)
[2018-08-01] MEDS ORDERED: heparin 10,000 units/1 ML INJ IV PRN (08:35)
[2018-08-01] MEDS: hyoscyamine 0.125mg TAB.SUBL SL SCH ×3 (08:52→19:10)
[2018-08-01] MEDS ORDERED: hyoscyamine 0.125mg TAB.SUBL SL SCH (09:00)
[2018-08-01] MEDS: ondansetron/PF 4mg/2ml inj IV PRN (10:20)
[2018-08-01] MEDS ORDERED: HYDROcodone/acetaminophen 5mg/325mg tablet PO PRN (14:00)
[2018-08-01] MEDS: normal saline 1000ml 1,000 ML IV SCH (16:07)
[2018-08-01] MEDS: NUT.TX.IMPAIRED DIGEST FXN (Ensure Clear) 237 ML PO SCH (18:00)
[2018-08-02] VITALS (24 sets, daily range): BP systolic 68–128; BP diastolic 44–86
[2018-08-02] MEDS: HYDROmorphone/NS 1 mg/ml CADD 50 ML IV SCH ×12 (00:24→23:00)
[2018-08-02] MEDS: cefepime 1GM/NS ADD-VANTAGE 100 ML IV SCH ×4 (00:24→23:29)
[2018-08-02] MEDS: baclofen 10mg tablet PO PRN ×2 (01:43→09:43)
[2018-08-02] MEDS: hyoscyamine 0.125mg TAB.SUBL SL SCH ×4 (01:43→20:27)
[2018-08-02] MEDS: metoprolol tartrate 1mg/ml inj IV SCH ×6 (03:04→21:05)
[2018-08-02 03:15] LABS: BASOPHILS % (AUTO) 0.4 % (0-1); EOSINOPHILS # (AUTO) 0.3 X10'3 (0-0.9); EOSINOPHILS % (AUTO) 3.7 % (0-6); HEMATOCRIT 36.5 % (35.0-45.0); HEMOGLOBIN 11.8 g/dl (12.0-16.0); LYMPHOCYTES # (AUTO) 2.2 X10'3 (1.1-4.8); LYMPHOCYTES % (AUTO) 25.4 % (21-51); MEAN CORPUSCULAR HEMOGLOBIN 26.9 PG (27.0-31.0); MEAN CORPUSCULAR HGB CONC 32.3 % (33.0-36.5); MEAN CORPUSCULAR VOLUME 83.3 FL (78-98); MEAN PLATELET VOLUME 8.7 FL (7.4-10.4); MONOCYTES # (AUTO) 0.7 X10'3 (0-0.9); MONOCYTES % (AUTO) 8.1 % (2-12); NEUTROPHILS # (AUTO) 5.5 X10'3 (1.8-7.7); NEUTROPHILS % (AUTO) 62.4 % (42-75); PLATELET COUNT 436 X10'3 (140-440); RED BLOOD COUNT 4.38 X10'6 (4.20-5.60); RED CELL DISTRIBUTION WIDTH 15.6 % (11.5-14.5); WHITE BLOOD COUNT 8.7 X10'3 (4.5-11.0)
[2018-08-02 03:18] LABS: ALANINE AMINOTRANSFERASE 23 U/L (12-78); ALBUMIN 2.5 G/DL (3.4-5.0); ALBUMIN/GLOBULIN RATIO 0.6 (1.1-1.5); ALKALINE PHOSPHATASE 113 IU/L (46-116); ANION GAP 13 (8-16); ASPARTATE AMINO TRANSFERASE 27 U/L (10-37); BILIRUBIN,TOTAL 0.4 MG/DL (0.1-1.0); BLOOD UREA NITROGEN 1 MG/DL (7-18); CALCIUM 8.4 MG/DL (8.5-10.1); CHLORIDE 103 MMOL/L (99-107); GLUCOSE 62 MG/DL (70-104); POTASSIUM 3.4 MMOL/L (3.5-5.1); SODIUM 139 MMOL/L (135-145); TOTAL CARBON DIOXIDE 22.9 MMOL/L (24-32); TOTAL PROTEIN 6.6 G/DL (6.4-8.2); eGFR > 90 ML/MIN
[2018-08-02] MEDS: K, MAG and/or Phos replacement - Verify level? MC SCH (08:00)
[2018-08-02] MEDS: NUT.TX.IMPAIRED DIGEST FXN (Ensure Clear) 237 ML PO SCH ×3 (08:00→18:00)
[2018-08-02] MEDS: lactobacillus rhamnosus 10,000 MMU CELLS/CAPSULE PO SCH ×2 (08:00→20:26)
[2018-08-02] MEDS: docusate sod 100mg capsule PO SCH ×2 (08:00→20:26)
[2018-08-02] MEDS: multivitamins, therapeutics tablet PO SCH (08:00)
[2018-08-02] MEDS: normal saline 1000ml 1,000 ML IV SCH ×2 (08:14→17:02)
[2018-08-02] MEDS: pantoprazole 40mg Tablet.DR PO SCH (08:14)
[2018-08-02] MEDS: clopidogrel 75mg tablet PO SCH (08:14)
[2018-08-02] MEDS: potassium Cl 20 mEq SR tablet PO PRN (08:26)
[2018-08-02] MEDS: NORepinephrine 8mg/ 250ml NS 250 ML IV PRN (17:03)
[2018-08-02] MEDS: heparin 25,000 UNIT/250ml bag 250 ML IV SCH (20:17)
[2018-08-03] VITALS (25 sets, daily range): BP systolic 79–143; BP diastolic 53–102
[2018-08-03] MEDS: HYDROmorphone/NS 1 mg/ml CADD 50 ML IV SCH ×12 (01:00→23:00)
[2018-08-03] MEDS: normal saline 1000ml 1,000 ML IV SCH ×2 (01:46→19:42)
[2018-08-03] MEDS: hyoscyamine 0.125mg TAB.SUBL SL SCH ×4 (01:46→19:42)
[2018-08-03] MEDS: baclofen 10mg tablet PO PRN ×3 (01:46→23:46)
[2018-08-03] MEDS: metoprolol tartrate 1mg/ml inj IV SCH ×5 (03:13→20:00)
[2018-08-03 03:19] LABS: BASOPHILS % (AUTO) 0.5 % (0-1); EOSINOPHILS # (AUTO) 0.2 X10'3 (0-0.9); EOSINOPHILS % (AUTO) 3.1 % (0-6); HEMOGLOBIN 10.7 g/dl (12.0-16.0); LYMPHOCYTES # (AUTO) 2.4 X10'3 (1.1-4.8); LYMPHOCYTES % (AUTO) 32.9 % (21-51); MEAN CORPUSCULAR HEMOGLOBIN 27.2 PG (27.0-31.0); MEAN CORPUSCULAR HGB CONC 32.6 % (33.0-36.5); MEAN CORPUSCULAR VOLUME 83.5 FL (78-98); MEAN PLATELET VOLUME 8.5 FL (7.4-10.4); MONOCYTES # (AUTO) 0.7 X10'3 (0-0.9); MONOCYTES % (AUTO) 9.8 % (2-12); NEUTROPHILS % (AUTO) 53.7 % (42-75); PLATELET COUNT 414 X10'3 (140-440); RED BLOOD COUNT 3.95 X10'6 (4.20-5.60); WHITE BLOOD COUNT 7.4 X10'3 (4.5-11.0)
[2018-08-03 03:34] LABS: ALANINE AMINOTRANSFERASE 16 U/L (12-78); ALBUMIN 2.4 G/DL (3.4-5.0); ALBUMIN/GLOBULIN RATIO 0.6 (1.1-1.5); ALKALINE PHOSPHATASE 93 IU/L (46-116); ANION GAP 10 (8-16); ASPARTATE AMINO TRANSFERASE 27 U/L (10-37); BILIRUBIN,TOTAL 0.3 MG/DL (0.1-1.0); BLOOD UREA NITROGEN 3 MG/DL (7-18); BUN/CREATININE RATIO 4.6 (6.6-38.0); CALCIUM 8.1 MG/DL (8.5-10.1); CHLORIDE 106 MMOL/L (99-107); CREATININE 0.65 MG/DL (0.40-0.90); GLUCOSE 95 MG/DL (70-104); POTASSIUM 3.6 MMOL/L (3.5-5.1); SODIUM 141 MMOL/L (135-145); TOTAL CARBON DIOXIDE 25.5 MMOL/L (24-32); TOTAL PROTEIN 6.2 G/DL (6.4-8.2); eGFR > 90 ML/MIN
[2018-08-03] MEDS: NUT.TX.IMPAIRED DIGEST FXN (Ensure Clear) 237 ML PO SCH ×3 (08:00→18:00)
[2018-08-03] MEDS: pantoprazole 40mg Tablet.DR PO SCH (08:01)
[2018-08-03] MEDS: docusate sod 100mg capsule PO SCH ×2 (08:01→19:42)
[2018-08-03] MEDS: multivitamins, therapeutics tablet PO SCH (08:01)
[2018-08-03] MEDS: clopidogrel 75mg tablet PO SCH (08:01)
[2018-08-03] MEDS: lactobacillus rhamnosus 10,000 MMU CELLS/CAPSULE PO SCH ×2 (08:01→19:42)
[2018-08-03] MEDS: cefepime 1GM/NS ADD-VANTAGE 100 ML IV SCH ×3 (08:02→23:46)
[2018-08-03] MEDS: K, MAG and/or Phos replacement - Verify level? MC SCH (08:26)
[2018-08-03 11:01] LABS: OXYGEN SATURATION (MIXED VEN) 77.7 % (60-80); PO2 MIXED VENOUS (TEMP COR) 41.3 mmHg (35-46)
[2018-08-03] MEDS: mag hydrox/Alum hydrox/simeth 30ml oral suspension PO PRN ×2 (16:48→23:46)
[2018-08-03] MEDS: midodrine 5mg tablet PO SCH ×2 (17:59→23:45)
[2018-08-03] MEDS: ondansetron/PF 4mg/2ml inj IV PRN (19:00)
[2018-08-03] MEDS: NORepinephrine 8mg/ 250ml NS 250 ML IV PRN (21:55)
[2018-08-04] VITALS (18 sets, daily range): BP systolic 86–149; BP diastolic 56–101
[2018-08-04] MEDS: HYDROmorphone/NS 1 mg/ml CADD 50 ML IV SCH ×12 (01:00→23:00)
[2018-08-04] MEDS: hyoscyamine 0.125mg TAB.SUBL SL SCH ×4 (02:19→20:37)
[2018-08-04] MEDS: metoprolol tartrate 1mg/ml inj IV SCH ×3 (02:19→08:00)
[2018-08-04 02:56] LABS: BASOPHILS % (AUTO) 0.5 % (0-1); EOSINOPHILS # (AUTO) 0.3 X10'3 (0-0.9); HEMATOCRIT 32.9 % (35.0-45.0); HEMOGLOBIN 10.5 g/dl (12.0-16.0); LYMPHOCYTES # (AUTO) 2.7 X10'3 (1.1-4.8); LYMPHOCYTES % (AUTO) 36.6 % (21-51); MEAN CORPUSCULAR HEMOGLOBIN 26.9 PG (27.0-31.0); MEAN CORPUSCULAR VOLUME 83.9 FL (78-98); MEAN PLATELET VOLUME 8.5 FL (7.4-10.4); MONOCYTES # (AUTO) 0.8 X10'3 (0-0.9); NEUTROPHILS # (AUTO) 3.5 X10'3 (1.8-7.7); NEUTROPHILS % (AUTO) 47.9 % (42-75); PLATELET COUNT 392 X10'3 (140-440); RED BLOOD COUNT 3.92 X10'6 (4.20-5.60); RED CELL DISTRIBUTION WIDTH 16.6 % (11.5-14.5); WHITE BLOOD COUNT 7.4 X10'3 (4.5-11.0)
[2018-08-04 03:18] LABS: ALANINE AMINOTRANSFERASE 16 U/L (12-78); ALBUMIN 2.3 G/DL (3.4-5.0); ALBUMIN/GLOBULIN RATIO 0.6 (1.1-1.5); ALKALINE PHOSPHATASE 83 IU/L (46-116); ANION GAP 6 (8-16); ASPARTATE AMINO TRANSFERASE 25 U/L (10-37); BILIRUBIN,TOTAL 0.2 MG/DL (0.1-1.0); BLOOD UREA NITROGEN 2 MG/DL (7-18); BUN/CREATININE RATIO 3.9 (6.6-38.0); CALCIUM 8.2 MG/DL (8.5-10.1); CHLORIDE 108 MMOL/L (99-107); CREATININE 0.51 MG/DL (0.40-0.90); GLUCOSE 104 MG/DL (70-104); POTASSIUM 3.1 MMOL/L (3.5-5.1); SODIUM 143 MMOL/L (135-145); TOTAL CARBON DIOXIDE 29.4 MMOL/L (24-32); eGFR > 90 ML/MIN
[2018-08-04] MEDS: normal saline 1000ml 1,000 ML IV SCH (04:20)
[2018-08-04] MEDS: potassium Cl 20 mEq SR tablet PO PRN ×2 (04:20→17:51)
[2018-08-04] MEDS: midodrine 5mg tablet PO SCH ×2 (07:07→16:33)
[2018-08-04] MEDS: pantoprazole 40mg Tablet.DR PO SCH (07:08)
[2018-08-04] MEDS: clopidogrel 75mg tablet PO SCH (07:08)
[2018-08-04] MEDS: lactobacillus rhamnosus 10,000 MMU CELLS/CAPSULE PO SCH ×2 (07:08→20:00)
[2018-08-04] MEDS: docusate sod 100mg capsule PO SCH ×2 (07:08→20:36)
[2018-08-04] MEDS: multivitamins, therapeutics tablet PO SCH (07:08)
[2018-08-04] MEDS: cefepime 1GM/NS ADD-VANTAGE 100 ML IV SCH ×2 (07:09→16:33)
[2018-08-04] MEDS: K, MAG and/or Phos replacement - Verify level? MC SCH (07:13)
[2018-08-04] MEDS: NUT.TX.IMPAIRED DIGEST FXN (Ensure Clear) 237 ML PO SCH ×3 (08:58→18:10)
[2018-08-04] MEDS: baclofen 10mg tablet PO PRN ×2 (11:38→20:37)
[2018-08-04] MEDS ORDERED: bisacodyl 10mg suppository rectal RC PRN (12:00)
[2018-08-04] MEDS ORDERED: polyethylene glycol 3350 17gm powd pack PO SCH (21:00)
[2018-08-05] MEDS: midodrine 5mg tablet PO SCH ×3 (00:18→15:28)
[2018-08-05] MEDS: cefepime 1GM/NS ADD-VANTAGE 100 ML IV SCH ×3 (00:18→15:26)
[2018-08-05] MEDS: potassium Cl 20 mEq SR tablet PO PRN (00:18)
[2018-08-05] MEDS: ondansetron/PF 4mg/2ml inj IV PRN (00:22)
[2018-08-05] MEDS: HYDROmorphone/NS 1 mg/ml CADD 50 ML IV SCH ×4 (01:00→11:00)
[2018-08-05 02:00] VITALS: BP 116/83
[2018-08-05] MEDS: hyoscyamine 0.125mg TAB.SUBL SL SCH ×4 (03:02→19:26)
[2018-08-05 06:06] LABS: BASOPHILS % (AUTO) 0.4 % (0-1); EOSINOPHILS # (AUTO) 0.4 X10'3 (0-0.9); EOSINOPHILS % (AUTO) 5.7 % (0-6); HEMATOCRIT 34.1 % (35.0-45.0); LYMPHOCYTES # (AUTO) 2.9 X10'3 (1.1-4.8); LYMPHOCYTES % (AUTO) 42.2 % (21-51); MEAN CORPUSCULAR HEMOGLOBIN 27.1 PG (27.0-31.0); MEAN CORPUSCULAR HGB CONC 32.3 % (33.0-36.5); MEAN CORPUSCULAR VOLUME 83.8 FL (78-98); MEAN PLATELET VOLUME 8.6 FL (7.4-10.4); MONOCYTES # (AUTO) 0.7 X10'3 (0-0.9); MONOCYTES % (AUTO) 10.8 % (2-12); NEUTROPHILS # (AUTO) 2.8 X10'3 (1.8-7.7); NEUTROPHILS % (AUTO) 40.9 % (42-75); PLATELET COUNT 373 X10'3 (140-440); RED BLOOD COUNT 4.07 X10'6 (4.20-5.60); WHITE BLOOD COUNT 6.8 X10'3 (4.5-11.0)
[2018-08-05 06:12] LABS: ALBUMIN 2.5 G/DL (3.4-5.0); ANION GAP 4 (8-16); BLOOD UREA NITROGEN 5 MG/DL (7-18); BUN/CREATININE RATIO 11.4 (6.6-38.0); CALCIUM 8.4 MG/DL (8.5-10.1); CHLORIDE 107 MMOL/L (99-107); CREATININE 0.44 MG/DL (0.40-0.90); GLUCOSE 74 MG/DL (70-104); POTASSIUM 4.2 MMOL/L (3.5-5.1); SODIUM 141 MMOL/L (135-145); TOTAL CARBON DIOXIDE 29.6 MMOL/L (24-32); eGFR > 90 ML/MIN
[2018-08-05 06:30] VITALS: BP 108/70
[2018-08-05] MEDS: lactobacillus rhamnosus 10,000 MMU CELLS/CAPSULE PO SCH ×2 (07:30→17:30)
[2018-08-05] MEDS: K, MAG and/or Phos replacement - Verify level? MC SCH (08:00)
[2018-08-05] MEDS: clopidogrel 75mg tablet PO SCH (08:50)
[2018-08-05] MEDS: docusate sod 100mg capsule PO SCH ×2 (08:53→19:24)
[2018-08-05] MEDS: multivitamins, therapeutics tablet PO SCH (08:54)
[2018-08-05] MEDS: polyethylene glycol 3350 17gm powd pack PO SCH (08:56)
[2018-08-05] MEDS: NUT.TX.IMPAIRED DIGEST FXN (Ensure Clear) 237 ML PO SCH ×3 (08:57→18:00)
[2018-08-05] MEDS: pantoprazole 40mg Tablet.DR PO SCH (09:00)
[2018-08-05] MEDS: baclofen 10mg tablet PO PRN ×2 (10:25→19:24)
[2018-08-05 11:00] VITALS: BP 90/62
[2018-08-05 19:00] VITALS: BP 100/60
[2018-08-05] MEDS: morphine 2 MG/ML inj. syringe IV PRN (21:40)
[2018-08-05 23:00] VITALS: BP 104/65
[2018-08-06] MEDS: cefepime 1GM/NS ADD-VANTAGE 100 ML IV SCH ×2 (00:25→08:21)
[2018-08-06] MEDS: midodrine 5mg tablet PO SCH ×3 (00:25→16:38)
[2018-08-06] MEDS: HYDROcodone/acetaminophen 10/325mg tab PO PRN ×4 (00:26→21:05)
[2018-08-06] MEDS: morphine 2 MG/ML inj. syringe IV PRN ×5 (01:52→23:02)
[2018-08-06] MEDS: hyoscyamine 0.125mg TAB.SUBL SL SCH ×4 (01:56→21:05)
[2018-08-06 03:00] VITALS: BP 104/67
[2018-08-06] MEDS: baclofen 10mg tablet PO PRN ×2 (04:30→14:20)
[2018-08-06 07:04] LABS: ALANINE AMINOTRANSFERASE 18 U/L (12-78); ALBUMIN/GLOBULIN RATIO 0.6 (1.1-1.5); ALKALINE PHOSPHATASE 86 IU/L (46-116); ANION GAP 10 (8-16); ASPARTATE AMINO TRANSFERASE 38 U/L (10-37); BILIRUBIN,TOTAL 0.3 MG/DL (0.1-1.0); BLOOD UREA NITROGEN 8 MG/DL (7-18); BUN/CREATININE RATIO 15.1 (6.6-38.0); CALCIUM 9.2 MG/DL (8.5-10.1); CHLORIDE 103 MMOL/L (99-107); CREATININE 0.53 MG/DL (0.40-0.90); GLUCOSE 82 MG/DL (70-104); POTASSIUM 4.2 MMOL/L (3.5-5.1); SODIUM 141 MMOL/L (135-145); TOTAL CARBON DIOXIDE 27.6 MMOL/L (24-32); TOTAL PROTEIN 7.7 G/DL (6.4-8.2); eGFR > 90 ML/MIN
[2018-08-06] MEDS: lactobacillus rhamnosus 10,000 MMU CELLS/CAPSULE PO SCH ×2 (07:30→16:44)
[2018-08-06 08:00] VITALS: BP 92/56
[2018-08-06] MEDS: NUT.TX.IMPAIRED DIGEST FXN (Ensure Clear) 237 ML PO SCH ×3 (08:00→18:00)
[2018-08-06] MEDS: polyethylene glycol 3350 17gm powd pack PO SCH (08:00)
[2018-08-06] MEDS: docusate sod 100mg capsule PO SCH ×2 (08:23→21:06)
[2018-08-06] MEDS: pantoprazole 40mg Tablet.DR PO SCH (08:23)
[2018-08-06] MEDS: clopidogrel 75mg tablet PO SCH (08:23)
[2018-08-06] MEDS: multivitamins, therapeutics tablet PO SCH (08:23)
[2018-08-06] MEDS: K, MAG and/or Phos replacement - Verify level? MC SCH (08:46)
[2018-08-06 10:05] LABS: BASOPHILS % (AUTO) 0.5 % (0-1); EOSINOPHILS # (AUTO) 0.4 X10'3 (0-0.9); EOSINOPHILS % (AUTO) 5.8 % (0-6); HEMATOCRIT 36.5 % (35.0-45.0); HEMOGLOBIN 11.9 g/dl (12.0-16.0); LYMPHOCYTES # (AUTO) 2.4 X10'3 (1.1-4.8); MEAN CORPUSCULAR HEMOGLOBIN 27.2 PG (27.0-31.0); MEAN CORPUSCULAR HGB CONC 32.6 % (33.0-36.5); MEAN CORPUSCULAR VOLUME 83.4 FL (78-98); MEAN PLATELET VOLUME 8.6 FL (7.4-10.4); MONOCYTES # (AUTO) 0.6 X10'3 (0-0.9); MONOCYTES % (AUTO) 9.5 % (2-12); NEUTROPHILS # (AUTO) 2.7 X10'3 (1.8-7.7); NEUTROPHILS % (AUTO) 45.2 % (42-75); PLATELET COUNT 382 X10'3 (140-440); RED BLOOD COUNT 4.38 X10'6 (4.20-5.60); RED CELL DISTRIBUTION WIDTH 17.3 % (11.5-14.5)
[2018-08-06 11:00] VITALS: BP 101/71
[2018-08-06] MEDS: ondansetron/PF 4mg/2ml inj IV PRN (13:15)
[2018-08-06 15:00] VITALS: BP 88/56
[2018-08-06 19:00] VITALS: BP 116/69
[2018-08-06 23:00] VITALS: BP 89/58
[2018-08-07] VITALS (7 sets, daily range): BP systolic 86–107; BP diastolic 49–77
[2018-08-07] MEDS: baclofen 10mg tablet PO PRN ×3 (00:26→17:51)
[2018-08-07] MEDS: midodrine 5mg tablet PO SCH ×3 (00:26→16:47)
[2018-08-07] MEDS: hyoscyamine 0.125mg TAB.SUBL SL SCH ×4 (00:27→20:00)
[2018-08-07] MEDS: HYDROcodone/acetaminophen 10/325mg tab PO PRN ×4 (03:03→15:56)
[2018-08-07] MEDS: morphine 2 MG/ML inj. syringe IV PRN ×5 (04:05→21:07)
[2018-08-07] MEDS: lactobacillus rhamnosus 10,000 MMU CELLS/CAPSULE PO SCH ×2 (07:30→17:30)
[2018-08-07] MEDS: multivitamins, therapeutics tablet PO SCH (07:32)
[2018-08-07] MEDS: docusate sod 100mg capsule PO SCH ×2 (07:33→20:00)
[2018-08-07] MEDS: pantoprazole 40mg Tablet.DR PO SCH (07:33)
[2018-08-07] MEDS: clopidogrel 75mg tablet PO SCH (07:33)
[2018-08-07] MEDS: polyethylene glycol 3350 17gm powd pack PO SCH (07:45)
[2018-08-07] MEDS: K, MAG and/or Phos replacement - Verify level? MC SCH (08:00)
[2018-08-07] MEDS: NUT.TX.IMPAIRED DIGEST FXN (Ensure Clear) 237 ML PO SCH ×3 (08:00→18:00)
[2018-08-07] MEDS: magnesium hydroxide 30ml (MOM) UD suspension PO PRN (08:39)
[2018-08-08] MEDS: midodrine 5mg tablet PO SCH ×3 (00:12→16:13)
[2018-08-08] MEDS: HYDROcodone/acetaminophen 10/325mg tab PO PRN ×5 (00:15→22:05)
[2018-08-08] MEDS: baclofen 10mg tablet PO PRN ×3 (01:19→19:59)
[2018-08-08] MEDS: hyoscyamine 0.125mg TAB.SUBL SL SCH ×4 (01:20→19:38)
[2018-08-08] MEDS: morphine 2 MG/ML inj. syringe IV PRN ×5 (01:22→20:00)
[2018-08-08 02:00] VITALS: BP 97/67
[2018-08-08 06:00] VITALS: BP 98/65
[2018-08-08] MEDS: lactobacillus rhamnosus 10,000 MMU CELLS/CAPSULE PO SCH ×2 (07:30→17:16)
[2018-08-08] MEDS: polyethylene glycol 3350 17gm powd pack PO SCH (08:00)
[2018-08-08] MEDS: K, MAG and/or Phos replacement - Verify level? MC SCH (08:00)
[2018-08-08] MEDS: NUT.TX.IMPAIRED DIGEST FXN (Ensure Clear) 237 ML PO SCH (08:00)
[2018-08-08] MEDS: clopidogrel 75mg tablet PO SCH (08:58)
[2018-08-08] MEDS: multivitamins, therapeutics tablet PO SCH (08:58)
[2018-08-08] MEDS: pantoprazole 40mg Tablet.DR PO SCH (08:58)
[2018-08-08] MEDS: docusate sod 100mg capsule PO SCH ×2 (08:58→19:37)
[2018-08-08] MEDS: magnesium hydroxide 30ml (MOM) UD suspension PO PRN (09:06)
[2018-08-08 11:00] VITALS: BP 97/78
[2018-08-08 15:00] VITALS: BP 91/56
[2018-08-08 18:00] VITALS: BP 93/61
[2018-08-08] MEDS: ondansetron/PF 4mg/2ml inj IV PRN (19:37)
[2018-08-08 22:00] VITALS: BP 88/54
[2018-08-09] MEDS: midodrine 5mg tablet PO SCH ×4 (00:28→23:53)
[2018-08-09] MEDS: morphine 2 MG/ML inj. syringe IV PRN ×6 (00:34→21:37)
[2018-08-09 02:00] VITALS: BP 99/70
[2018-08-09] MEDS: hyoscyamine 0.125mg TAB.SUBL SL SCH ×4 (02:30→19:25)
[2018-08-09] MEDS: HYDROcodone/acetaminophen 10/325mg tab PO PRN ×5 (04:26→23:55)
[2018-08-09 06:00] VITALS: BP 91/57
[2018-08-09] MEDS: lactobacillus rhamnosus 10,000 MMU CELLS/CAPSULE PO SCH ×2 (07:30→17:30)
[2018-08-09] MEDS: K, MAG and/or Phos replacement - Verify level? MC SCH (08:00)
[2018-08-09] MEDS: polyethylene glycol 3350 17gm powd pack PO SCH (08:00)
[2018-08-09] MEDS: pantoprazole 40mg Tablet.DR PO SCH (08:10)
[2018-08-09] MEDS: multivitamins, therapeutics tablet PO SCH (08:10)
[2018-08-09] MEDS: clopidogrel 75mg tablet PO SCH (08:10)
[2018-08-09] MEDS: docusate sod 100mg capsule PO SCH ×2 (08:10→19:25)
[2018-08-09 09:27] LABS: BASOPHILS # (AUTO) 0.1 X10'3 (0-0.2); BASOPHILS % (AUTO) 0.7 % (0-1); EOSINOPHILS # (AUTO) 0.3 X10'3 (0-0.9); EOSINOPHILS % (AUTO) 3.9 % (0-6); HEMATOCRIT 41.1 % (35.0-45.0); LYMPHOCYTES # (AUTO) 2.3 X10'3 (1.1-4.8); LYMPHOCYTES % (AUTO) 28.2 % (21-51); MEAN CORPUSCULAR HEMOGLOBIN 26.6 PG (27.0-31.0); MEAN CORPUSCULAR HGB CONC 31.7 % (33.0-36.5); MEAN CORPUSCULAR VOLUME 84.1 FL (78-98); MEAN PLATELET VOLUME 8.6 FL (7.4-10.4); MONOCYTES # (AUTO) 0.7 X10'3 (0-0.9); MONOCYTES % (AUTO) 8.5 % (2-12); NEUTROPHILS # (AUTO) 4.8 X10'3 (1.8-7.7); NEUTROPHILS % (AUTO) 58.7 % (42-75); PLATELET COUNT 493 X10'3 (140-440); RED BLOOD COUNT 4.88 X10'6 (4.20-5.60); RED CELL DISTRIBUTION WIDTH 17.8 % (11.5-14.5); WHITE BLOOD COUNT 8.1 X10'3 (4.5-11.0)
[2018-08-09 09:41] LABS: ALANINE AMINOTRANSFERASE 89 U/L (12-78); ALBUMIN 3.3 G/DL (3.4-5.0); ALBUMIN/GLOBULIN RATIO 0.7 (1.1-1.5); ALKALINE PHOSPHATASE 103 IU/L (46-116); ANION GAP 9 (8-16); ASPARTATE AMINO TRANSFERASE 96 U/L (10-37); BILIRUBIN,TOTAL 0.2 MG/DL (0.1-1.0); BLOOD UREA NITROGEN 11 MG/DL (7-18); CHLORIDE 104 MMOL/L (99-107); CREATININE 0.58 MG/DL (0.40-0.90); GLUCOSE 88 MG/DL (70-104); POTASSIUM 4.5 MMOL/L (3.5-5.1); SODIUM 140 MMOL/L (135-145); TOTAL PROTEIN 7.8 G/DL (6.4-8.2); eGFR > 90 ML/MIN
[2018-08-09 11:00] VITALS: BP 94/61
[2018-08-09] MEDS: baclofen 10mg tablet PO PRN ×2 (13:33→23:56)
[2018-08-09 15:00] VITALS: BP 88/55
[2018-08-09 19:04] VITALS: BP 99/69
[2018-08-09 22:30] VITALS: BP 102/63
[2018-08-10] MEDS: hyoscyamine 0.125mg TAB.SUBL SL SCH ×4 (01:43→20:33)
[2018-08-10] MEDS: morphine 2 MG/ML inj. syringe IV PRN ×5 (01:44→20:34)
[2018-08-10 02:30] VITALS: BP 104/71
[2018-08-10] MEDS: HYDROcodone/acetaminophen 10/325mg tab PO PRN ×5 (04:26→22:56)
[2018-08-10] MEDS: ondansetron/PF 4mg/2ml inj IV PRN (05:28)
[2018-08-10 06:00] VITALS: BP 121/82
[2018-08-10] MEDS: lactobacillus rhamnosus 10,000 MMU CELLS/CAPSULE PO SCH ×2 (07:30→16:57)
[2018-08-10] MEDS: K, MAG and/or Phos replacement - Verify level? MC SCH (08:00)
[2018-08-10] MEDS: polyethylene glycol 3350 17gm powd pack PO SCH (08:45)
[2018-08-10] MEDS: multivitamins, therapeutics tablet PO SCH (08:46)
[2018-08-10] MEDS: docusate sod 100mg capsule PO SCH ×2 (08:46→20:00)
[2018-08-10] MEDS: midodrine 5mg tablet PO SCH ×2 (08:47→16:00)
[2018-08-10] MEDS: clopidogrel 75mg tablet PO SCH (08:47)
[2018-08-10] MEDS: pantoprazole 40mg Tablet.DR PO SCH ×2 (08:50→17:05)
[2018-08-10] MEDS ORDERED: levoFLOXACIN-Levaquin 500mg/D5 100 ML IV SCH (09:00)
[2018-08-10] MEDS ORDERED: ondansetron/PF 4mg/2ml inj IV PRN (09:25)
[2018-08-10] MEDS: baclofen 10mg tablet PO PRN (10:32)
[2018-08-10 11:00] VITALS: BP 109/73
[2018-08-10 15:00] VITALS: BP 169/95
[2018-08-10] MEDS ORDERED: metroNIDAZOLE-Flagyl 500mg/NS 100 ML IV SCH (16:00)
[2018-08-10 19:00] VITALS: BP 98/71
[2018-08-10] MEDS ORDERED: pantoprazole 40mg Tablet.DR PO SCH (20:00)
[2018-08-10 23:00] VITALS: BP 89/55
[2018-08-10] MEDS ORDERED: normal saline 1000ml 1,000 ML IV ONE (23:40)
[2018-08-11] MEDS: midodrine 5mg tablet PO SCH ×3 (00:10→16:09)
[2018-08-11] MEDS: morphine 2 MG/ML inj. syringe IV PRN ×5 (01:10→19:58)
[2018-08-11] MEDS: hyoscyamine 0.125mg TAB.SUBL SL SCH ×4 (02:00→19:58)
[2018-08-11] MEDS: mag hydrox/Alum hydrox/simeth 30ml oral suspension PO PRN (02:35)
[2018-08-11] MEDS: magnesium hydroxide 30ml (MOM) UD suspension PO PRN (02:37)
[2018-08-11] MEDS: baclofen 10mg tablet PO PRN ×3 (02:37→23:00)
[2018-08-11 03:00] VITALS: BP 110/65
[2018-08-11] MEDS: HYDROcodone/acetaminophen 10/325mg tab PO PRN ×4 (04:13→22:34)
[2018-08-11 06:00] VITALS: BP 107/71
[2018-08-11 06:05] LABS: BASOPHILS % (AUTO) 0.2 % (0-1); EOSINOPHILS # (AUTO) 0.4 X10'3 (0-0.9); EOSINOPHILS % (AUTO) 5.3 % (0-6); HEMATOCRIT 36.8 % (35.0-45.0); HEMOGLOBIN 12.1 g/dl (12.0-16.0); LYMPHOCYTES # (AUTO) 2.4 X10'3 (1.1-4.8); LYMPHOCYTES % (AUTO) 31.7 % (21-51); MEAN CORPUSCULAR HEMOGLOBIN 27.4 PG (27.0-31.0); MEAN CORPUSCULAR VOLUME 83.2 FL (78-98); MEAN PLATELET VOLUME 8.5 FL (7.4-10.4); MONOCYTES # (AUTO) 0.6 X10'3 (0-0.9); MONOCYTES % (AUTO) 7.7 % (2-12); NEUTROPHILS # (AUTO) 4.2 X10'3 (1.8-7.7); NEUTROPHILS % (AUTO) 55.1 % (42-75); PLATELET COUNT 395 X10'3 (140-440); RED BLOOD COUNT 4.43 X10'6 (4.20-5.60); RED CELL DISTRIBUTION WIDTH 17.5 % (11.5-14.5); WHITE BLOOD COUNT 7.7 X10'3 (4.5-11.0)
[2018-08-11 06:24] LABS: ALANINE AMINOTRANSFERASE 63 U/L (12-78); ALBUMIN 3.2 G/DL (3.4-5.0); ALBUMIN/GLOBULIN RATIO 0.7 (1.1-1.5); ALKALINE PHOSPHATASE 91 IU/L (46-116); ANION GAP 7 (8-16); ASPARTATE AMINO TRANSFERASE 42 U/L (10-37); BILIRUBIN,TOTAL 0.4 MG/DL (0.1-1.0); BLOOD UREA NITROGEN 11 MG/DL (7-18); CALCIUM 9.4 MG/DL (8.5-10.1); CHLORIDE 103 MMOL/L (99-107); GLUCOSE 88 MG/DL (70-104); POTASSIUM 3.9 MMOL/L (3.5-5.1); SODIUM 137 MMOL/L (135-145); TOTAL PROTEIN 7.7 G/DL (6.4-8.2); eGFR > 90 ML/MIN
[2018-08-11] MEDS: lactobacillus rhamnosus 10,000 MMU CELLS/CAPSULE PO SCH ×2 (07:30→17:06)
[2018-08-11] MEDS: polyethylene glycol 3350 17gm powd pack PO SCH (08:00)
[2018-08-11] MEDS: K, MAG and/or Phos replacement - Verify level? MC SCH (08:00)
[2018-08-11] MEDS: clopidogrel 75mg tablet PO SCH (08:54)
[2018-08-11] MEDS: docusate sod 100mg capsule PO SCH ×2 (08:55→20:00)
[2018-08-11] MEDS: multivitamins, therapeutics tablet PO SCH (08:55)
[2018-08-11] MEDS: pantoprazole 40mg Tablet.DR PO SCH ×2 (09:00→17:08)
[2018-08-11 11:00] VITALS: BP 106/63
[2018-08-11 15:00] VITALS: BP 104/70
[2018-08-11] MEDS: lactulose 20gm/30ml cup PO PRN ×2 (16:09→22:35)
[2018-08-11 19:00] VITALS: BP 102/70
[2018-08-11] MEDS: carVEDilol 3.125mg tablet PO SCH (20:00)
[2018-08-11] MEDS: heparin, porcine 5000 units/ml vial SQ SCH (20:00)
[2018-08-11 23:00] VITALS: BP 98/61
[2018-08-12] MEDS: midodrine 5mg tablet PO SCH ×3 (01:01→15:32)
[2018-08-12] MEDS: morphine 2 MG/ML inj. syringe IV PRN ×5 (01:02→20:22)
[2018-08-12] MEDS: hyoscyamine 0.125mg TAB.SUBL SL SCH ×4 (02:00→20:20)
[2018-08-12 03:00] VITALS: BP 121/74
[2018-08-12 06:00] VITALS: BP 93/61
[2018-08-12] MEDS: lactobacillus rhamnosus 10,000 MMU CELLS/CAPSULE PO SCH ×2 (07:30→17:25)
[2018-08-12] MEDS: heparin, porcine 5000 units/ml vial SQ SCH ×2 (08:00→20:20)
[2018-08-12] MEDS: carVEDilol 3.125mg tablet PO SCH ×2 (08:00→20:00)
[2018-08-12] MEDS: polyethylene glycol 3350 17gm powd pack PO SCH (08:00)
[2018-08-12] MEDS: K, MAG and/or Phos replacement - Verify level? MC SCH (08:00)
[2018-08-12] MEDS: HYDROcodone/acetaminophen 10/325mg tab PO PRN ×4 (08:05→22:50)
[2018-08-12] MEDS: multivitamins, therapeutics tablet PO SCH (08:08)
[2018-08-12] MEDS: atorvastatin 20mg tablet PO SCH (08:08)
[2018-08-12] MEDS: pantoprazole 40mg Tablet.DR PO SCH ×2 (08:09→17:23)
[2018-08-12] MEDS: docusate sod 100mg capsule PO SCH ×2 (08:09→20:00)
[2018-08-12] MEDS: clopidogrel 75mg tablet PO SCH (08:09)
[2018-08-12 11:00] VITALS: BP 100/69
[2018-08-12] MEDS: lactulose 20gm/30ml cup PO PRN (12:55)
[2018-08-12 13:15] LABS: CHOL/HDL RATIO 3.8 (0.00-4.99); CHOLESTEROL 165 MG/DL (0-200); HDL CHOLESTEROL 44 MG/DL (35-60); LDL CHOLESTEROL 106 MG/DL (50-100); TRIGLYCERIDES 99 MG/DL (20-135)
[2018-08-12 15:00] VITALS: BP 89/58
[2018-08-12] MEDS: baclofen 10mg tablet PO PRN (15:32)
[2018-08-12 19:00] VITALS: BP 102/66
[2018-08-12 23:00] VITALS: BP 97/62
[2018-08-13] MEDS: midodrine 5mg tablet PO SCH ×3 (00:46→16:47)
[2018-08-13] MEDS: hyoscyamine 0.125mg TAB.SUBL SL SCH ×4 (01:47→20:04)
[2018-08-13] MEDS: morphine 2 MG/ML inj. syringe IV PRN ×5 (01:55→22:12)
[2018-08-13 03:00] VITALS: BP 109/72
[2018-08-13] MEDS: HYDROcodone/acetaminophen 10/325mg tab PO PRN ×4 (04:52→20:07)
[2018-08-13 06:00] VITALS: BP 133/89
[2018-08-13 06:57] LABS: BASOPHILS % (AUTO) 0.4 % (0-1); EOSINOPHILS # (AUTO) 0.5 X10'3 (0-0.9); EOSINOPHILS % (AUTO) 6.5 % (0-6); HEMATOCRIT 37.2 % (35.0-45.0); LYMPHOCYTES % (AUTO) 40.7 % (21-51); MEAN CORPUSCULAR HEMOGLOBIN 26.9 PG (27.0-31.0); MEAN CORPUSCULAR HGB CONC 32.2 % (33.0-36.5); MEAN CORPUSCULAR VOLUME 83.7 FL (78-98); MEAN PLATELET VOLUME 8.9 FL (7.4-10.4); MONOCYTES # (AUTO) 0.7 X10'3 (0-0.9); NEUTROPHILS # (AUTO) 3.2 X10'3 (1.8-7.7); NEUTROPHILS % (AUTO) 42.4 % (42-75); PLATELET COUNT 411 X10'3 (140-440); RED BLOOD COUNT 4.44 X10'6 (4.20-5.60); RED CELL DISTRIBUTION WIDTH 17.3 % (11.5-14.5); WHITE BLOOD COUNT 7.4 X10'3 (4.5-11.0)
[2018-08-13 07:31] LABS: ALANINE AMINOTRANSFERASE 59 U/L (12-78); ALBUMIN 3.1 G/DL (3.4-5.0); ALBUMIN/GLOBULIN RATIO 0.7 (1.1-1.5); ALKALINE PHOSPHATASE 99 IU/L (46-116); ANION GAP 10 (8-16); ASPARTATE AMINO TRANSFERASE 44 U/L (10-37); BILIRUBIN,TOTAL 0.2 MG/DL (0.1-1.0); BLOOD UREA NITROGEN 13 MG/DL (7-18); BUN/CREATININE RATIO 23.2 (6.6-38.0); CHLORIDE 105 MMOL/L (99-107); CREATININE 0.56 MG/DL (0.40-0.90); GLUCOSE 91 MG/DL (70-104); SODIUM 139 MMOL/L (135-145); TOTAL CARBON DIOXIDE 23.7 MMOL/L (24-32); TOTAL PROTEIN 7.4 G/DL (6.4-8.2); eGFR > 90 ML/MIN
[2018-08-13] MEDS: lactobacillus rhamnosus 10,000 MMU CELLS/CAPSULE PO SCH ×2 (07:55→17:30)
[2018-08-13] MEDS: pantoprazole 40mg Tablet.DR PO SCH ×2 (07:55→16:47)
[2018-08-13] MEDS: baclofen 10mg tablet PO PRN ×2 (07:55→20:09)
[2018-08-13] MEDS: carVEDilol 3.125mg tablet PO SCH ×2 (08:00→20:04)
[2018-08-13] MEDS: polyethylene glycol 3350 17gm powd pack PO SCH (08:00)
[2018-08-13] MEDS: K, MAG and/or Phos replacement - Verify level? MC SCH (08:00)
[2018-08-13] MEDS: atorvastatin 20mg tablet PO SCH (10:03)
[2018-08-13] MEDS: clopidogrel 75mg tablet PO SCH (10:03)
[2018-08-13] MEDS: multivitamins, therapeutics tablet PO SCH (10:03)
[2018-08-13] MEDS: docusate sod 100mg capsule PO SCH ×2 (10:04→16:47)
[2018-08-13] MEDS: heparin, porcine 5000 units/ml vial SQ SCH ×2 (10:04→20:05)
[2018-08-13 11:00] VITALS: BP 96/64
[2018-08-13 15:00] VITALS: BP 104/67
[2018-08-13 19:00] VITALS: BP 100/63
[2018-08-13] MEDS: mag hydrox/Alum hydrox/simeth 30ml oral suspension PO PRN (20:09)
[2018-08-13 23:00] VITALS: BP 94/61
[2018-08-14] MEDS: HYDROcodone/acetaminophen 10/325mg tab PO PRN ×4 (00:17→23:39)
[2018-08-14] MEDS: midodrine 5mg tablet PO SCH ×5 (00:23→23:38)
[2018-08-14] MEDS: hyoscyamine 0.125mg TAB.SUBL SL SCH ×4 (02:27→19:37)
[2018-08-14] MEDS: morphine 2 MG/ML inj. syringe IV PRN ×5 (02:28→21:36)
[2018-08-14 03:00] VITALS: BP 84/54
[2018-08-14 07:00] VITALS: BP 90/44
[2018-08-14] MEDS: lactobacillus rhamnosus 10,000 MMU CELLS/CAPSULE PO SCH ×2 (07:30→17:30)
[2018-08-14] MEDS: K, MAG and/or Phos replacement - Verify level? MC SCH (07:45)
[2018-08-14] MEDS: polyethylene glycol 3350 17gm powd pack PO SCH (08:00)
[2018-08-14] MEDS: docusate sod 100mg capsule PO SCH ×2 (08:43→19:35)
[2018-08-14] MEDS: mag hydrox/Alum hydrox/simeth 30ml oral suspension PO PRN (08:43)
[2018-08-14] MEDS: baclofen 10mg tablet PO PRN (08:43)
[2018-08-14] MEDS: multivitamins, therapeutics tablet PO SCH (08:43)
[2018-08-14] MEDS: pantoprazole 40mg Tablet.DR PO SCH ×2 (08:43→17:29)
[2018-08-14] MEDS: clopidogrel 75mg tablet PO SCH (08:43)
[2018-08-14] MEDS: heparin, porcine 5000 units/ml vial SQ SCH ×2 (08:45→19:36)
[2018-08-14] MEDS: carVEDilol 3.125mg tablet PO SCH ×2 (09:46→19:44)
[2018-08-14] MEDS: atorvastatin 20mg tablet PO SCH (09:47)
[2018-08-14 11:00] VITALS: BP 100/56
[2018-08-14 15:00] VITALS: BP 102/58
[2018-08-14] MEDS: baclofen 10mg tablet PO SCH ×2 (17:29→23:38)
[2018-08-14 19:00] VITALS: BP 106/73
[2018-08-14 23:00] VITALS: BP 88/50
[2018-08-15] MEDS: hyoscyamine 0.125mg TAB.SUBL SL SCH ×4 (01:37→20:30)
[2018-08-15] MEDS: morphine 2 MG/ML inj. syringe IV PRN ×3 (01:38→11:59)
[2018-08-15 03:00] VITALS: BP 91/54
[2018-08-15] MEDS: HYDROcodone/acetaminophen 10/325mg tab PO PRN ×4 (03:13→20:30)
[2018-08-15 07:00] VITALS: BP 96/58
[2018-08-15] MEDS: lactobacillus rhamnosus 10,000 MMU CELLS/CAPSULE PO SCH ×2 (07:30→16:47)
[2018-08-15] MEDS: K, MAG and/or Phos replacement - Verify level? MC SCH (07:33)
[2018-08-15] MEDS: carVEDilol 3.125mg tablet PO SCH ×2 (08:00→20:00)
[2018-08-15] MEDS: polyethylene glycol 3350 17gm powd pack PO SCH (08:00)
[2018-08-15] MEDS: docusate sod 100mg capsule PO SCH ×2 (08:50→20:30)
[2018-08-15] MEDS: baclofen 10mg tablet PO SCH ×2 (08:51→15:07)
[2018-08-15] MEDS: multivitamins, therapeutics tablet PO SCH (08:52)
[2018-08-15] MEDS: heparin, porcine 5000 units/ml vial SQ SCH ×2 (08:52→20:31)
[2018-08-15] MEDS: atorvastatin 20mg tablet PO SCH (08:53)
[2018-08-15] MEDS: midodrine 5mg tablet PO SCH ×2 (08:53→15:08)
[2018-08-15] MEDS: clopidogrel 75mg tablet PO SCH (08:54)
[2018-08-15] MEDS: pantoprazole 40mg Tablet.DR PO SCH ×2 (09:07→17:23)
[2018-08-15 11:00] VITALS: BP 93/45
[2018-08-15 15:00] VITALS: BP 91/48
[2018-08-15] MEDS: morphine 10mg/0.5ml (conc. morphine) oral syringe PO PRN ×2 (17:52→22:38)
[2018-08-15 19:00] VITALS: BP 91/54
[2018-08-15 23:00] VITALS: BP 94/57
[2018-08-16] MEDS: HYDROcodone/acetaminophen 10/325mg tab PO PRN ×4 (00:55→23:34)
[2018-08-16] MEDS: midodrine 5mg tablet PO SCH ×4 (00:55→23:35)
[2018-08-16] MEDS: baclofen 10mg tablet PO SCH ×4 (00:55→23:34)
[2018-08-16] MEDS: hyoscyamine 0.125mg TAB.SUBL SL SCH ×4 (02:34→20:00)
[2018-08-16] MEDS: morphine 10mg/0.5ml (conc. morphine) oral syringe PO PRN (02:49)
[2018-08-16 03:00] VITALS: BP 94/63
[2018-08-16] MEDS: ondansetron 4mg rapidly disintigrating tab OGT PRN ×3 (05:04→19:44)
[2018-08-16 06:56] VITALS: BP 85/49
[2018-08-16] MEDS: lactobacillus rhamnosus 10,000 MMU CELLS/CAPSULE PO SCH ×2 (07:30→16:53)
[2018-08-16] MEDS: polyethylene glycol 3350 17gm powd pack PO SCH (07:51)
[2018-08-16] MEDS: K, MAG and/or Phos replacement - Verify level? MC SCH (08:00)
[2018-08-16] MEDS: multivitamins, therapeutics tablet PO SCH (08:00)
[2018-08-16] MEDS: carVEDilol 3.125mg tablet PO SCH ×2 (08:00→20:00)
[2018-08-16] MEDS: docusate sod 100mg capsule PO SCH ×2 (08:00→20:00)
[2018-08-16] MEDS: pantoprazole 40mg Tablet.DR PO SCH ×2 (08:11→16:47)
[2018-08-16] MEDS: clopidogrel 75mg tablet PO SCH (08:12)
[2018-08-16] MEDS: atorvastatin 20mg tablet PO SCH (08:12)
[2018-08-16] MEDS: heparin, porcine 5000 units/ml vial SQ SCH ×2 (08:16→21:01)
[2018-08-16 11:00] VITALS: BP 123/71
[2018-08-16] MEDS ORDERED: metoclopramide 10mg/10 ml UD oral solution PO PRN (11:15)
[2018-08-16 15:00] VITALS: BP 93/60
[2018-08-16 19:30] VITALS: BP 105/63
[2018-08-16 22:00] VITALS: BP 100/65
[2018-08-17 02:00] VITALS: BP 94/67
[2018-08-17] MEDS: hyoscyamine 0.125mg TAB.SUBL SL SCH ×4 (02:00→20:11)
[2018-08-17] MEDS: HYDROcodone/acetaminophen 10/325mg tab PO PRN ×5 (03:42→20:21)
[2018-08-17] MEDS: ondansetron 4mg rapidly disintigrating tab OGT PRN (03:45)
[2018-08-17 06:00] VITALS: BP 94/67
[2018-08-17] MEDS: midodrine 5mg tablet PO SCH ×2 (07:26→15:43)
[2018-08-17] MEDS: pantoprazole 40mg Tablet.DR PO SCH ×2 (07:26→16:59)
[2018-08-17] MEDS: multivitamins, therapeutics tablet PO SCH (07:27)
[2018-08-17] MEDS: docusate sod 100mg capsule PO SCH ×2 (07:27→20:00)
[2018-08-17] MEDS: baclofen 10mg tablet PO SCH ×2 (07:27→15:43)
[2018-08-17] MEDS: clopidogrel 75mg tablet PO SCH (07:28)
[2018-08-17] MEDS: atorvastatin 20mg tablet PO SCH (07:28)
[2018-08-17] MEDS: lactobacillus rhamnosus 10,000 MMU CELLS/CAPSULE PO SCH ×2 (07:29→16:39)
[2018-08-17] MEDS: carVEDilol 3.125mg tablet PO SCH (07:29)
[2018-08-17] MEDS: heparin, porcine 5000 units/ml vial SQ SCH ×2 (07:30→20:11)
[2018-08-17] MEDS: K, MAG and/or Phos replacement - Verify level? MC SCH (07:33)
[2018-08-17] MEDS: polyethylene glycol 3350 17gm powd pack PO SCH (07:33)
[2018-08-17 11:00] VITALS: BP 96/64
[2018-08-17 15:00] VITALS: BP 108/73
[2018-08-17 19:00] VITALS: BP 119/70
[2018-08-17] MEDS: oxybutynin 5mg tablet PO SCH (20:11)
[2018-08-17] MEDS: simethicone 125mg capsule PO SCH (20:12)
[2018-08-17 23:00] VITALS: BP 119/72
[2018-08-18] VITALS (7 sets, daily range): BP systolic 92–127; BP diastolic 47–77
[2018-08-18] MEDS: baclofen 10mg tablet PO SCH ×3 (00:14→16:27)
[2018-08-18] MEDS: HYDROcodone/acetaminophen 10/325mg tab PO PRN ×5 (00:18→20:40)
[2018-08-18] MEDS: midodrine 5mg tablet PO SCH ×3 (00:19→16:27)
[2018-08-18] MEDS: hyoscyamine 0.125mg TAB.SUBL SL SCH ×4 (02:00→20:23)
[2018-08-18] MEDS: ondansetron 4mg rapidly disintigrating tab OGT PRN (02:54)
[2018-08-18] MEDS: metoprolol succinate 25mg (24-HOUR) SR. Tablet PO SCH (08:00)
[2018-08-18] MEDS: K, MAG and/or Phos replacement - Verify level? MC SCH (08:00)
[2018-08-18] MEDS: polyethylene glycol 3350 17gm powd pack PO SCH (08:00)
[2018-08-18] MEDS: docusate sod 100mg capsule PO SCH ×2 (08:00→20:00)
[2018-08-18] MEDS: simethicone 125mg capsule PO SCH ×3 (08:34→20:23)
[2018-08-18] MEDS: oxybutynin 5mg tablet PO SCH ×3 (08:35→20:23)
[2018-08-18] MEDS: multivitamins, therapeutics tablet PO SCH (08:35)
[2018-08-18] MEDS: pantoprazole 40mg Tablet.DR PO SCH ×2 (08:35→18:01)
[2018-08-18] MEDS: clopidogrel 75mg tablet PO SCH (08:36)
[2018-08-18] MEDS: atorvastatin 20mg tablet PO SCH (08:36)
[2018-08-18] MEDS: lactobacillus rhamnosus 10,000 MMU CELLS/CAPSULE PO SCH ×2 (08:36→17:30)
[2018-08-18] MEDS: heparin, porcine 5000 units/ml vial SQ SCH ×2 (08:37→20:22)
[2018-08-18] MEDS ORDERED: iohexol 350MG/ML 100ml bottle IV ONE (10:10)
[2018-08-18] MEDS: LORazepam 1 MG tablet PO PRN (11:06)
[2018-08-18] MEDS ORDERED: HYDROcodone/acetaminophen 10/325mg tab PO ONE (11:30)
[2018-08-18] MEDS: lactose-reduced food (Ensure Enlive) - 237ml bottle PO SCH ×2 (13:00→18:00)
[2018-08-19] MEDS: baclofen 10mg tablet PO SCH ×3 (01:04→16:13)
[2018-08-19] MEDS: hyoscyamine 0.125mg TAB.SUBL SL SCH ×4 (01:04→20:07)
[2018-08-19] MEDS: midodrine 5mg tablet PO SCH ×3 (01:04→16:13)
[2018-08-19 02:00] VITALS: BP 98/60
[2018-08-19 06:00] VITALS: BP 84/49
[2018-08-19] MEDS: lactobacillus rhamnosus 10,000 MMU CELLS/CAPSULE PO SCH ×2 (07:30→17:09)
[2018-08-19] MEDS: docusate sod 100mg capsule PO SCH ×2 (08:00→20:00)
[2018-08-19] MEDS: lactose-reduced food (Ensure Enlive) - 237ml bottle PO SCH ×3 (08:00→17:09)
[2018-08-19] MEDS: K, MAG and/or Phos replacement - Verify level? MC SCH (08:00)
[2018-08-19] MEDS: polyethylene glycol 3350 17gm powd pack PO SCH (08:00)
[2018-08-19] MEDS: metoprolol succinate 25mg (24-HOUR) SR. Tablet PO SCH (08:00)
[2018-08-19] MEDS ORDERED: HYDROcodone/acetaminophen 10/325mg tab PO PRN (08:05)
[2018-08-19] MEDS: simethicone 125mg capsule PO SCH ×3 (08:16→20:06)
[2018-08-19] MEDS: multivitamins, therapeutics tablet PO SCH (08:17)
[2018-08-19] MEDS: clopidogrel 75mg tablet PO SCH (08:17)
[2018-08-19] MEDS: oxybutynin 5mg tablet PO SCH ×3 (08:17→20:07)
[2018-08-19] MEDS: atorvastatin 20mg tablet PO SCH (08:17)
[2018-08-19] MEDS: heparin, porcine 5000 units/ml vial SQ SCH ×2 (08:18→20:07)
[2018-08-19] MEDS: pantoprazole 40mg Tablet.DR PO SCH ×2 (08:18→16:14)
[2018-08-19] MEDS ORDERED: LORazepam 1 MG tablet PO ONE (08:40)
[2018-08-19] MEDS ORDERED: LORazepam 2 mg/ml vial IM ONE (08:50)
[2018-08-19 11:00] VITALS: BP 94/60
[2018-08-19] MEDS: HYDROcodone/acetaminophen 10/325mg tab PO PRN ×2 (12:56→20:08)
[2018-08-19 14:13] LABS: BASOPHILS # (AUTO) 0.1 X10'3 (0-0.2); EOSINOPHILS # (AUTO) 0.6 X10'3 (0-0.9); EOSINOPHILS % (AUTO) 6.6 % (0-6); HEMATOCRIT 35.9 % (35.0-45.0); HEMOGLOBIN 11.7 g/dl (12.0-16.0); LYMPHOCYTES # (AUTO) 2.4 X10'3 (1.1-4.8); LYMPHOCYTES % (AUTO) 27.4 % (21-51); MEAN CORPUSCULAR HEMOGLOBIN 27.1 PG (27.0-31.0); MEAN CORPUSCULAR HGB CONC 32.7 % (33.0-36.5); MEAN CORPUSCULAR VOLUME 82.8 FL (78-98); MEAN PLATELET VOLUME 9.1 FL (7.4-10.4); MONOCYTES # (AUTO) 0.8 X10'3 (0-0.9); MONOCYTES % (AUTO) 9.1 % (2-12); NEUTROPHILS # (AUTO) 4.9 X10'3 (1.8-7.7); NEUTROPHILS % (AUTO) 55.9 % (42-75); PLATELET COUNT 410 X10'3 (140-440); RED BLOOD COUNT 4.33 X10'6 (4.20-5.60); RED CELL DISTRIBUTION WIDTH 17.6 % (11.5-14.5); WHITE BLOOD COUNT 8.8 X10'3 (4.5-11.0)
[2018-08-19 14:27] LABS: ALANINE AMINOTRANSFERASE 66 U/L (12-78); ALBUMIN 3.4 G/DL (3.4-5.0); ALBUMIN/GLOBULIN RATIO 0.8 (1.1-1.5); ALKALINE PHOSPHATASE 77 IU/L (46-116); ANION GAP 8 (8-16); ASPARTATE AMINO TRANSFERASE 43 U/L (10-37); BILIRUBIN,TOTAL 0.2 MG/DL (0.1-1.0); BLOOD UREA NITROGEN 12 MG/DL (7-18); BUN/CREATININE RATIO 29.3 (6.6-38.0); CALCIUM 9.3 MG/DL (8.5-10.1); CHLORIDE 103 MMOL/L (99-107); CREATININE 0.41 MG/DL (0.40-0.90); GLUCOSE 110 MG/DL (70-104); POTASSIUM 3.8 MMOL/L (3.5-5.1); SODIUM 141 MMOL/L (135-145); TOTAL CARBON DIOXIDE 29.9 MMOL/L (24-32); TOTAL PROTEIN 7.8 G/DL (6.4-8.2); eGFR > 90 ML/MIN
[2018-08-19 15:00] VITALS: BP 94/60
[2018-08-19] MEDS ORDERED: iohexol 350MG/ML 100ml bottle IV ONE (16:09)
[2018-08-19 18:00] VITALS: BP 117/75
[2018-08-20] VITALS (13 sets, daily range): BP systolic 82–152; BP diastolic 40–86
[2018-08-20] MEDS: hyoscyamine 0.125mg TAB.SUBL SL SCH ×4 (01:45→21:28)
[2018-08-20] MEDS: HYDROcodone/acetaminophen 10/325mg tab PO PRN ×4 (05:20→21:29)
[2018-08-20] MEDS: lactobacillus rhamnosus 10,000 MMU CELLS/CAPSULE PO SCH ×2 (07:30→16:32)
[2018-08-20] MEDS: clopidogrel 75mg tablet PO SCH (07:58)
[2018-08-20] MEDS: multivitamins, therapeutics tablet PO SCH (07:58)
[2018-08-20] MEDS: atorvastatin 20mg tablet PO SCH (07:59)
[2018-08-20] MEDS: K, MAG and/or Phos replacement - Verify level? MC SCH (08:00)
[2018-08-20] MEDS: metoprolol succinate 25mg (24-HOUR) SR. Tablet PO SCH (08:00)
[2018-08-20] MEDS: docusate sod 100mg capsule PO SCH ×2 (08:00→20:00)
[2018-08-20] MEDS: baclofen 10mg tablet PO SCH ×3 (08:00→15:02)
[2018-08-20] MEDS: heparin, porcine 5000 units/ml vial SQ SCH (08:00)
[2018-08-20] MEDS: polyethylene glycol 3350 17gm powd pack PO SCH (08:00)
[2018-08-20] MEDS: midodrine 5mg tablet PO SCH ×3 (08:01→15:11)
[2018-08-20] MEDS: pantoprazole 40mg Tablet.DR PO SCH ×2 (08:01→16:32)
[2018-08-20] MEDS: oxybutynin 5mg tablet PO SCH ×3 (08:02→21:29)
[2018-08-20] MEDS: simethicone 125mg capsule PO SCH ×3 (08:02→21:28)
[2018-08-20] MEDS: lactose-reduced food (Ensure Enlive) - 237ml bottle PO SCH ×3 (08:04→18:00)
[2018-08-20] MEDS: morphine 4 MG/ML inj SYRINge IV PRN ×3 (08:21→23:00)
[2018-08-20] MEDS ORDERED: LIDOcaine/PRILOcaine 5gm cream TP ONE (12:20)
[2018-08-20] MEDS ORDERED: nitroGLYCERIN-Tridil 50MG/D5W 250 ML IV ONE (12:24)
[2018-08-20] MEDS ORDERED: iohexol 350MG/ML 100ml bottle IV ONE (12:25)
[2018-08-20] MEDS ORDERED: verapamil 2.5 mg/ml inj IV ONE (12:25)
[2018-08-20] MEDS ORDERED: heparin 1,000unit/ml 10ml vial 10 ML ONE (12:25)
[2018-08-20] MEDS ORDERED: LIDOcaine 1.5% w/epinephrine 1:200,000 5ml ampul ONE (12:26)
[2018-08-20] MEDS ORDERED: proCHLORperazine 10 MG/2 ml inj ONE (12:38)
[2018-08-20] MEDS ORDERED: fentaNYL/PF 50MCG/1 ML 2ML syringe ONE (12:38)
[2018-08-20] MEDS ORDERED: midazolam 2 mg/2 ml injection ONE (12:38)
[2018-08-20] MEDS ORDERED: normal saline 1000ml 1,000 ML IV ONE (16:55)
[2018-08-20] MEDS ORDERED: ondansetron/PF 4mg/2ml inj IV PRN ×2 (16:55→17:25)
[2018-08-20] MEDS ORDERED: nitroGLYCERIN 0.4mg SUBLingual tab SL PRN (16:55)
[2018-08-20] MEDS ORDERED: proCHLORperazine 10 MG/2 ml inj IV PRN ×2 (16:55→17:25)
[2018-08-20] MEDS ORDERED: normal saline 1000ml 1,000 ML IV SCH (17:25)
[2018-08-20] MEDS ORDERED: HYDROcodone/acetaminophen 5mg/325mg tablet PO PRN (17:25)
[2018-08-21] MEDS: baclofen 10mg tablet PO SCH ×3 (00:27→17:35)
[2018-08-21 02:00] VITALS: BP 110/62
[2018-08-21] MEDS: hyoscyamine 0.125mg TAB.SUBL SL SCH ×4 (02:00→20:04)
[2018-08-21] MEDS: HYDROcodone/acetaminophen 10/325mg tab PO PRN ×5 (03:20→22:59)
[2018-08-21] MEDS: morphine 4 MG/ML inj SYRINge IV PRN ×4 (04:21→20:04)
[2018-08-21 06:00] VITALS: BP 104/69
[2018-08-21] MEDS: atorvastatin 20mg tablet PO SCH (07:11)
[2018-08-21] MEDS: docusate sod 100mg capsule PO SCH ×2 (07:11→20:03)
[2018-08-21] MEDS: clopidogrel 75mg tablet PO SCH (07:12)
[2018-08-21] MEDS: simethicone 125mg capsule PO SCH ×3 (07:13→20:03)
[2018-08-21] MEDS: midodrine 5mg tablet PO SCH ×3 (07:15→17:35)
[2018-08-21] MEDS: pantoprazole 40mg Tablet.DR PO SCH ×2 (07:16→17:36)
[2018-08-21] MEDS: oxybutynin 5mg tablet PO SCH ×3 (07:16→20:03)
[2018-08-21] MEDS: multivitamins, therapeutics tablet PO SCH (07:18)
[2018-08-21] MEDS: polyethylene glycol 3350 17gm powd pack PO SCH (07:19)
[2018-08-21] MEDS: metoprolol succinate 25mg (24-HOUR) SR. Tablet PO SCH (07:19)
[2018-08-21] MEDS: lactobacillus rhamnosus 10,000 MMU CELLS/CAPSULE PO SCH ×2 (07:19→17:30)
[2018-08-21] MEDS: lactose-reduced food (Ensure Enlive) - 237ml bottle PO SCH ×3 (08:00→18:44)
[2018-08-21 11:00] VITALS: BP 120/78
[2018-08-21] MEDS ORDERED: predniSONE 20 mg tablet PO ONE (12:10)
[2018-08-21 15:00] VITALS: BP 101/58
[2018-08-21] MEDS: K, MAG and/or Phos replacement - Verify level? MC SCH (18:43)
[2018-08-21 19:00] VITALS: BP 99/58
[2018-08-21 23:00] VITALS: BP 118/80
[2018-08-22] VITALS (7 sets, daily range): BP systolic 86–110; BP diastolic 48–68
[2018-08-22] MEDS: baclofen 10mg tablet PO SCH ×4 (00:52→23:34)
[2018-08-22] MEDS: morphine 4 MG/ML inj SYRINge IV PRN ×5 (00:53→20:59)
[2018-08-22] MEDS: hyoscyamine 0.125mg TAB.SUBL SL SCH ×4 (02:00→19:18)
[2018-08-22] MEDS: HYDROcodone/acetaminophen 10/325mg tab PO PRN ×5 (05:28→23:35)
[2018-08-22] MEDS: lactobacillus rhamnosus 10,000 MMU CELLS/CAPSULE PO SCH ×2 (07:30→17:13)
[2018-08-22] MEDS: K, MAG and/or Phos replacement - Verify level? MC SCH (08:00)
[2018-08-22] MEDS: metoprolol succinate 25mg (24-HOUR) SR. Tablet PO SCH (08:00)
[2018-08-22] MEDS ORDERED: predniSONE 20 mg tablet PO ONE (08:00)
[2018-08-22] MEDS: pantoprazole 40mg Tablet.DR PO SCH ×2 (08:28→17:53)
[2018-08-22] MEDS: docusate sod 100mg capsule PO SCH ×2 (08:30→19:18)
[2018-08-22] MEDS: oxybutynin 5mg tablet PO SCH ×3 (08:30→21:00)
[2018-08-22] MEDS: lactose-reduced food (Ensure Enlive) - 237ml bottle PO SCH ×3 (08:31→17:56)
[2018-08-22] MEDS: simethicone 125mg capsule PO SCH ×3 (08:31→21:00)
[2018-08-22] MEDS: atorvastatin 20mg tablet PO SCH (08:32)
[2018-08-22] MEDS: polyethylene glycol 3350 17gm powd pack PO SCH (08:33)
[2018-08-22] MEDS: clopidogrel 75mg tablet PO SCH (08:33)
[2018-08-22] MEDS: midodrine 5mg tablet PO SCH ×4 (08:34→23:34)
[2018-08-22] MEDS: multivitamins, therapeutics tablet PO SCH (08:34)
[2018-08-23] MEDS: morphine 4 MG/ML inj SYRINge IV PRN ×5 (01:41→21:51)
[2018-08-23] MEDS: hyoscyamine 0.125mg TAB.SUBL SL SCH ×5 (01:41→19:47)
[2018-08-23 02:00] VITALS: BP 110/71
[2018-08-23] MEDS: HYDROcodone/acetaminophen 10/325mg tab PO PRN ×5 (04:48→23:53)
[2018-08-23 07:07] VITALS: BP 101/75
[2018-08-23] MEDS: metoprolol succinate 25mg (24-HOUR) SR. Tablet PO SCH (08:00)
[2018-08-23] MEDS: polyethylene glycol 3350 17gm powd pack PO SCH (08:00)
[2018-08-23] MEDS: K, MAG and/or Phos replacement - Verify level? MC SCH (08:00)
[2018-08-23] MEDS: midodrine 5mg tablet PO SCH ×3 (08:05→23:57)
[2018-08-23] MEDS: oxybutynin 5mg tablet PO SCH ×3 (08:05→20:58)
[2018-08-23] MEDS: atorvastatin 20mg tablet PO SCH (08:06)
[2018-08-23] MEDS: baclofen 10mg tablet PO SCH ×3 (08:06→23:53)
[2018-08-23] MEDS: multivitamins, therapeutics tablet PO SCH (08:06)
[2018-08-23] MEDS: pantoprazole 40mg Tablet.DR PO SCH ×2 (08:06→16:37)
[2018-08-23] MEDS: lactobacillus rhamnosus 10,000 MMU CELLS/CAPSULE PO SCH ×2 (08:06→16:41)
[2018-08-23] MEDS: clopidogrel 75mg tablet PO SCH (08:06)
[2018-08-23] MEDS: simethicone 125mg capsule PO SCH ×3 (08:06→20:58)
[2018-08-23] MEDS: docusate sod 100mg capsule PO SCH ×2 (08:06→19:47)
[2018-08-23] MEDS: lactose-reduced food (Ensure Enlive) - 237ml bottle PO SCH ×3 (08:08→17:22)
[2018-08-23 12:05] VITALS: BP 93/49
[2018-08-23 15:57] VITALS: BP 128/90
[2018-08-23 18:00] VITALS: BP 129/86
[2018-08-23 22:15] VITALS: BP 117/64
[2018-08-24] VITALS (7 sets, daily range): BP systolic 106–153; BP diastolic 62–97
[2018-08-24] MEDS: morphine 4 MG/ML inj SYRINge IV PRN ×5 (02:32→22:17)
[2018-08-24] MEDS: hyoscyamine 0.125mg TAB.SUBL SL SCH ×4 (02:33→19:03)
[2018-08-24] MEDS: mag hydrox/Alum hydrox/simeth 30ml oral suspension PO PRN (05:46)
[2018-08-24] MEDS: HYDROcodone/acetaminophen 10/325mg tab PO PRN ×4 (05:47→20:43)
[2018-08-24] MEDS: lactose-reduced food (Ensure Enlive) - 237ml bottle PO SCH ×3 (07:30→18:42)
[2018-08-24] MEDS: lactobacillus rhamnosus 10,000 MMU CELLS/CAPSULE PO SCH ×2 (07:30→17:30)
[2018-08-24] MEDS: clopidogrel 75mg tablet PO SCH (07:43)
[2018-08-24] MEDS: K, MAG and/or Phos replacement - Verify level? MC SCH (08:00)
[2018-08-24] MEDS: baclofen 10mg tablet PO SCH ×2 (08:36→16:26)
[2018-08-24] MEDS: docusate sod 100mg capsule PO SCH ×2 (08:36→19:05)
[2018-08-24] MEDS: pantoprazole 40mg Tablet.DR PO SCH ×2 (08:36→17:34)
[2018-08-24] MEDS: multivitamins, therapeutics tablet PO SCH (08:37)
[2018-08-24] MEDS: atorvastatin 20mg tablet PO SCH (08:37)
[2018-08-24] MEDS: simethicone 125mg capsule PO SCH ×3 (08:37→20:42)
[2018-08-24] MEDS: oxybutynin 5mg tablet PO SCH ×3 (08:37→20:42)
[2018-08-24] MEDS: midodrine 5mg tablet PO SCH ×2 (08:53→16:00)
[2018-08-24] MEDS: polyethylene glycol 3350 17gm powd pack PO SCH (08:54)
[2018-08-24] MEDS: metoprolol succinate 25mg (24-HOUR) SR. Tablet PO SCH (12:30)
[2018-08-24] MEDS: magnesium hydroxide 30ml (MOM) UD suspension PO PRN (19:02)
[2018-08-24] MEDS: acetaminophen 325mg tablet PO PRN (19:02)
[2018-08-25] MEDS: midodrine 5mg tablet PO SCH ×4 (01:07→23:34)
[2018-08-25] MEDS: baclofen 10mg tablet PO SCH ×4 (01:07→23:34)
[2018-08-25] MEDS: hyoscyamine 0.125mg TAB.SUBL SL SCH ×4 (01:07→20:28)
[2018-08-25] MEDS: HYDROcodone/acetaminophen 10/325mg tab PO PRN ×4 (01:44→20:30)
[2018-08-25 03:00] VITALS: BP 117/76
[2018-08-25] MEDS: morphine 4 MG/ML inj SYRINge IV PRN (04:04)
[2018-08-25] MEDS: lactobacillus rhamnosus 10,000 MMU CELLS/CAPSULE PO SCH ×2 (07:30→17:30)
[2018-08-25] MEDS: pantoprazole 40mg Tablet.DR PO SCH ×2 (07:30→17:21)
[2018-08-25] MEDS: K, MAG and/or Phos replacement - Verify level? MC SCH (08:00)
[2018-08-25] MEDS: lactose-reduced food (Ensure Enlive) - 237ml bottle PO SCH ×3 (08:00→18:00)
[2018-08-25] MEDS: metoprolol succinate 25mg (24-HOUR) SR. Tablet PO SCH (08:00)
[2018-08-25] MEDS: multivitamins, therapeutics tablet PO SCH (08:49)
[2018-08-25] MEDS: clopidogrel 75mg tablet PO SCH (08:49)
[2018-08-25] MEDS: docusate sod 100mg capsule PO SCH ×2 (08:50→20:29)
[2018-08-25] MEDS: oxybutynin 5mg tablet PO SCH ×3 (08:50→20:29)
[2018-08-25] MEDS: atorvastatin 20mg tablet PO SCH (08:50)
[2018-08-25] MEDS: acetaminophen 325mg tablet PO PRN (08:51)
[2018-08-25] MEDS: polyethylene glycol 3350 17gm powd pack PO SCH (08:52)
[2018-08-25] MEDS: simethicone 125mg capsule PO SCH ×3 (08:53→20:28)
[2018-08-25 11:20] VITALS: BP 156/99
[2018-08-25] MEDS: morphine 2 MG/ML inj. syringe IV PRN ×3 (14:45→23:26)
[2018-08-25 15:00] VITALS: BP 141/95
[2018-08-25 19:00] VITALS: BP 150/92
[2018-08-25 23:00] VITALS: BP 157/91
[2018-08-26] VITALS (7 sets, daily range): BP systolic 126–173; BP diastolic 77–124
[2018-08-26] MEDS: HYDROcodone/acetaminophen 10/325mg tab PO PRN ×5 (01:32→20:06)
[2018-08-26] MEDS: hyoscyamine 0.125mg TAB.SUBL SL SCH ×4 (02:00→20:05)
[2018-08-26] MEDS: morphine 2 MG/ML inj. syringe IV PRN ×5 (03:59→22:59)
[2018-08-26] MEDS: lactobacillus rhamnosus 10,000 MMU CELLS/CAPSULE PO SCH ×2 (07:30→16:52)
[2018-08-26] MEDS: K, MAG and/or Phos replacement - Verify level? MC SCH (08:00)
[2018-08-26] MEDS: polyethylene glycol 3350 17gm powd pack PO SCH (08:00)
[2018-08-26] MEDS: metoprolol succinate 25mg (24-HOUR) SR. Tablet PO SCH (08:00)
[2018-08-26] MEDS: multivitamins, therapeutics tablet PO SCH (08:45)
[2018-08-26] MEDS: docusate sod 100mg capsule PO SCH ×2 (08:46→20:05)
[2018-08-26] MEDS: midodrine 5mg tablet PO SCH ×3 (08:46→16:00)
[2018-08-26] MEDS: clopidogrel 75mg tablet PO SCH (08:46)
[2018-08-26] MEDS: baclofen 10mg tablet PO SCH ×2 (08:46→16:50)
[2018-08-26] MEDS: pantoprazole 40mg Tablet.DR PO SCH ×2 (08:47→16:49)
[2018-08-26] MEDS: oxybutynin 5mg tablet PO SCH ×3 (08:47→20:05)
[2018-08-26] MEDS: atorvastatin 20mg tablet PO SCH (08:47)
[2018-08-26] MEDS: simethicone 125mg capsule PO SCH ×3 (08:47→20:05)
[2018-08-26] MEDS: lactose-reduced food (Ensure Enlive) - 237ml bottle PO SCH ×3 (08:49→18:00)
[2018-08-26] MEDS: LORazepam 1 MG tablet PO PRN (14:47)
[2018-08-26] MEDS ORDERED: HYDROmorphone 1 mg/ml syringe IV ONE (17:20)
[2018-08-26] MEDS: mag hydrox/Alum hydrox/simeth 30ml oral suspension PO PRN (21:46)
[2018-08-27] MEDS: HYDROcodone/acetaminophen 10/325mg tab PO PRN ×5 (00:29→20:45)
[2018-08-27] MEDS: baclofen 10mg tablet PO SCH ×3 (00:29→15:30)
[2018-08-27] MEDS: hyoscyamine 0.125mg TAB.SUBL SL SCH ×4 (02:03→20:45)
[2018-08-27] MEDS: morphine 2 MG/ML inj. syringe IV PRN ×4 (03:22→23:46)
[2018-08-27 06:00] VITALS: BP 95/66
[2018-08-27] MEDS: lactobacillus rhamnosus 10,000 MMU CELLS/CAPSULE PO SCH ×2 (07:30→17:30)
[2018-08-27] MEDS: polyethylene glycol 3350 17gm powd pack PO SCH (08:00)
[2018-08-27] MEDS: lactose-reduced food (Ensure Enlive) - 237ml bottle PO SCH ×3 (08:00→18:00)
[2018-08-27] MEDS: metoprolol succinate 25mg (24-HOUR) SR. Tablet PO SCH (08:00)
[2018-08-27] MEDS: K, MAG and/or Phos replacement - Verify level? MC SCH (08:00)
[2018-08-27] MEDS: atorvastatin 20mg tablet PO SCH (08:41)
[2018-08-27] MEDS: multivitamins, therapeutics tablet PO SCH (08:42)
[2018-08-27] MEDS: clopidogrel 75mg tablet PO SCH (08:42)
[2018-08-27] MEDS: docusate sod 100mg capsule PO SCH ×2 (08:42→20:44)
[2018-08-27] MEDS: pantoprazole 40mg Tablet.DR PO SCH ×2 (08:42→17:52)
[2018-08-27] MEDS: oxybutynin 5mg tablet PO SCH ×3 (08:43→20:45)
[2018-08-27] MEDS: midodrine 5mg tablet PO SCH ×3 (08:43→15:30)
[2018-08-27] MEDS: simethicone 125mg capsule PO SCH ×3 (08:44→20:45)
[2018-08-27] MEDS: magnesium hydroxide 30ml (MOM) UD suspension PO PRN (10:56)
[2018-08-27 11:00] VITALS: BP 152/95
[2018-08-27 15:00] VITALS: BP 144/92
[2018-08-27 19:00] VITALS: BP 141/86
[2018-08-27 23:00] VITALS: BP 152/97
[2018-08-28] MEDS: HYDROcodone/acetaminophen 10/325mg tab PO PRN ×5 (02:08→23:59)
[2018-08-28] MEDS: hyoscyamine 0.125mg TAB.SUBL SL SCH ×4 (02:08→19:34)
[2018-08-28] MEDS: baclofen 10mg tablet PO SCH ×4 (02:08→23:59)
[2018-08-28] MEDS: ondansetron 4mg rapidly disintigrating tab OGT PRN (02:12)
[2018-08-28 03:00] VITALS: BP 125/83
[2018-08-28] MEDS: morphine 2 MG/ML inj. syringe IV PRN ×4 (04:59→22:41)
[2018-08-28 06:00] VITALS: BP 157/97
[2018-08-28] MEDS: lactobacillus rhamnosus 10,000 MMU CELLS/CAPSULE PO SCH ×2 (07:30→16:37)
[2018-08-28] MEDS: polyethylene glycol 3350 17gm powd pack PO SCH (08:00)
[2018-08-28] MEDS: lactose-reduced food (Ensure Enlive) - 237ml bottle PO SCH ×3 (08:00→18:00)
[2018-08-28] MEDS: K, MAG and/or Phos replacement - Verify level? MC SCH (08:28)
[2018-08-28] MEDS: oxybutynin 5mg tablet PO SCH ×3 (09:01→22:40)
[2018-08-28] MEDS: simethicone 125mg capsule PO SCH ×3 (09:01→22:40)
[2018-08-28] MEDS: clopidogrel 75mg tablet PO SCH (09:01)
[2018-08-28] MEDS: atorvastatin 20mg tablet PO SCH (09:01)
[2018-08-28] MEDS: docusate sod 100mg capsule PO SCH ×2 (09:01→19:37)
[2018-08-28] MEDS: pantoprazole 40mg Tablet.DR PO SCH ×2 (09:01→16:38)
[2018-08-28] MEDS: midodrine 5mg tablet PO SCH ×4 (09:02→23:59)
[2018-08-28] MEDS: multivitamins, therapeutics tablet PO SCH (09:02)
[2018-08-28] MEDS: metoprolol succinate 25mg (24-HOUR) SR. Tablet PO SCH (09:03)
[2018-08-28 11:00] VITALS: BP 113/70
[2018-08-28 18:00] VITALS: BP 138/93
[2018-08-28 22:00] VITALS: BP 123/77
[2018-08-29] MEDS: hyoscyamine 0.125mg TAB.SUBL SL SCH ×4 (02:00→20:40)
[2018-08-29] MEDS: morphine 2 MG/ML inj. syringe IV PRN ×2 (02:56→08:00)
[2018-08-29] MEDS: HYDROcodone/acetaminophen 10/325mg tab PO PRN ×4 (05:04→19:09)
[2018-08-29 06:00] VITALS: BP 104/63
[2018-08-29] MEDS: lactobacillus rhamnosus 10,000 MMU CELLS/CAPSULE PO SCH ×2 (07:30→17:30)
[2018-08-29] MEDS: K, MAG and/or Phos replacement - Verify level? MC SCH (07:46)
[2018-08-29] MEDS: lactose-reduced food (Ensure Enlive) - 237ml bottle PO SCH ×3 (07:46→18:45)
[2018-08-29] MEDS: metoprolol succinate 25mg (24-HOUR) SR. Tablet PO SCH (08:00)
[2018-08-29] MEDS: polyethylene glycol 3350 17gm powd pack PO SCH (08:00)
[2018-08-29] MEDS: multivitamins, therapeutics tablet PO SCH (08:03)
[2018-08-29] MEDS: midodrine 5mg tablet PO SCH ×2 (08:04→16:00)
[2018-08-29] MEDS: docusate sod 100mg capsule PO SCH ×2 (08:04→19:10)
[2018-08-29] MEDS: clopidogrel 75mg tablet PO SCH (08:04)
[2018-08-29] MEDS: simethicone 125mg capsule PO SCH ×3 (08:05→20:42)
[2018-08-29] MEDS: oxybutynin 5mg tablet PO SCH ×3 (08:05→20:42)
[2018-08-29] MEDS: atorvastatin 20mg tablet PO SCH (08:05)
[2018-08-29] MEDS: baclofen 10mg tablet PO SCH ×2 (08:05→16:05)
[2018-08-29] MEDS: pantoprazole 40mg Tablet.DR PO SCH ×2 (08:06→17:33)
[2018-08-29 11:00] VITALS: BP 104/57
[2018-08-29] MEDS: morphine 4 MG/ML inj SYRINge IV PRN ×3 (12:04→22:02)
[2018-08-29 14:53] LABS: URINE AMPHETAMINE SCREEN NEGATIVE (Neg); URINE BARBITUATE SCREEN NEGATIVE (Neg); URINE BENZODIAZEPINES SCREEN NEGATIVE (Neg); URINE CANNABINOID SCREEN POSITIVE (Neg); URINE COCAINE SCREEN NEGATIVE (Neg); URINE METHADONE SCREEN NEGATIVE (Neg); URINE OPIATE SCREEN POSITIVE (Neg); URINE PHENCYCLIDINE SCREEN NEGATIVE (Neg)
[2018-08-29 15:00] VITALS: BP 133/79
[2018-08-29 18:00] VITALS: BP 150/89
[2018-08-29 22:00] VITALS: BP 81/51
[2018-08-30] MEDS: baclofen 10mg tablet PO SCH ×3 (00:27→17:50)
[2018-08-30 00:59] VITALS: BP 105/47
[2018-08-30] MEDS: midodrine 5mg tablet PO SCH ×3 (01:01→17:51)
[2018-08-30] MEDS: HYDROcodone/acetaminophen 10/325mg tab PO PRN ×5 (01:36→22:43)
[2018-08-30] MEDS: hyoscyamine 0.125mg TAB.SUBL SL SCH ×4 (02:00→20:00)
[2018-08-30] MEDS: morphine 4 MG/ML inj SYRINge IV PRN ×4 (04:27→20:42)
[2018-08-30 06:00] VITALS: BP 110/68
[2018-08-30] MEDS: lactobacillus rhamnosus 10,000 MMU CELLS/CAPSULE PO SCH ×2 (06:47→17:30)
[2018-08-30] MEDS: pantoprazole 40mg Tablet.DR PO SCH ×2 (06:48→17:51)
[2018-08-30] MEDS: ondansetron 4mg rapidly disintigrating tab OGT PRN (06:51)
[2018-08-30] MEDS: K, MAG and/or Phos replacement - Verify level? MC SCH (08:00)
[2018-08-30] MEDS: lactose-reduced food (Ensure Enlive) - 237ml bottle PO SCH ×3 (08:00→18:00)
[2018-08-30] MEDS: atorvastatin 20mg tablet PO SCH (09:17)
[2018-08-30] MEDS: docusate sod 100mg capsule PO SCH ×2 (09:17→20:38)
[2018-08-30] MEDS: simethicone 125mg capsule PO SCH ×3 (09:17→20:38)
[2018-08-30] MEDS: multivitamins, therapeutics tablet PO SCH (09:17)
[2018-08-30] MEDS: clopidogrel 75mg tablet PO SCH (09:17)
[2018-08-30] MEDS: oxybutynin 5mg tablet PO SCH ×3 (09:18→20:39)
[2018-08-30] MEDS: polyethylene glycol 3350 17gm powd pack PO SCH (09:19)
[2018-08-30] MEDS: metoprolol succinate 25mg (24-HOUR) SR. Tablet PO SCH (09:20)
[2018-08-30 10:00] VITALS: BP 106/70
[2018-08-30] MEDS: mag hydrox/Alum hydrox/simeth 30ml oral suspension PO PRN (12:15)
[2018-08-30 18:02] VITALS: BP 115/74
[2018-08-30] MEDS: tizanidine 4mg tablet PO PRN (20:38)
[2018-08-30 21:33] VITALS: BP 105/70
[2018-08-31] MEDS: morphine 4 MG/ML inj SYRINge IV PRN ×5 (00:31→23:23)
[2018-08-31] MEDS: baclofen 10mg tablet PO SCH ×3 (00:32→16:58)
[2018-08-31] MEDS: midodrine 5mg tablet PO SCH ×3 (01:06→16:58)
[2018-08-31] MEDS: hyoscyamine 0.125mg TAB.SUBL SL SCH ×4 (02:00→20:37)
[2018-08-31] MEDS: HYDROcodone/acetaminophen 10/325mg tab PO PRN ×4 (04:34→20:31)
[2018-08-31] MEDS: lactobacillus rhamnosus 10,000 MMU CELLS/CAPSULE PO SCH ×2 (07:21→17:30)
[2018-08-31] MEDS: simethicone 125mg capsule PO SCH ×3 (07:23→20:31)
[2018-08-31] MEDS: atorvastatin 20mg tablet PO SCH (07:23)
[2018-08-31] MEDS: clopidogrel 75mg tablet PO SCH (07:23)
[2018-08-31] MEDS: docusate sod 100mg capsule PO SCH ×2 (07:23→20:30)
[2018-08-31] MEDS: pantoprazole 40mg Tablet.DR PO SCH ×2 (07:23→16:58)
[2018-08-31] MEDS: multivitamins, therapeutics tablet PO SCH (07:24)
[2018-08-31] MEDS: oxybutynin 5mg tablet PO SCH ×3 (07:24→20:30)
[2018-08-31] MEDS: polyethylene glycol 3350 17gm powd pack PO SCH (07:26)
[2018-08-31] MEDS: metoprolol succinate 25mg (24-HOUR) SR. Tablet PO SCH (07:26)
[2018-08-31] MEDS: K, MAG and/or Phos replacement - Verify level? MC SCH (07:27)
[2018-08-31 08:45] VITALS: BP 108/81
[2018-08-31] MEDS: lactose-reduced food (Ensure Enlive) - 237ml bottle PO SCH ×3 (08:57→18:00)
[2018-08-31 19:00] VITALS: BP 122/86
[2018-08-31 21:30] VITALS: BP 160/95
[2018-09-01] MEDS: baclofen 10mg tablet PO SCH ×4 (00:34→23:58)
[2018-09-01] MEDS: hyoscyamine 0.125mg TAB.SUBL SL SCH ×4 (02:00→20:21)
[2018-09-01] MEDS: HYDROcodone/acetaminophen 10/325mg tab PO PRN ×4 (04:22→21:20)
[2018-09-01 06:00] VITALS: BP 92/59
[2018-09-01] MEDS: pantoprazole 40mg Tablet.DR PO SCH ×2 (06:48→17:38)
[2018-09-01] MEDS: morphine 4 MG/ML inj SYRINge IV PRN (06:48)
[2018-09-01] MEDS: mag hydrox/Alum hydrox/simeth 30ml oral suspension PO PRN (06:48)
[2018-09-01] MEDS: lactobacillus rhamnosus 10,000 MMU CELLS/CAPSULE PO SCH ×2 (06:48→17:38)
[2018-09-01] MEDS: metoprolol succinate 25mg (24-HOUR) SR. Tablet PO SCH (08:00)
[2018-09-01] MEDS: lactose-reduced food (Ensure Enlive) - 237ml bottle PO SCH ×3 (08:00→18:00)
[2018-09-01] MEDS: docusate sod 100mg capsule PO SCH ×2 (08:00→20:20)
[2018-09-01] MEDS: K, MAG and/or Phos replacement - Verify level? MC SCH (08:00)
[2018-09-01] MEDS: polyethylene glycol 3350 17gm powd pack PO SCH (08:00)
[2018-09-01] MEDS: multivitamins, therapeutics tablet PO SCH (08:59)
[2018-09-01] MEDS: clopidogrel 75mg tablet PO SCH (08:59)
[2018-09-01] MEDS: simethicone 125mg capsule PO SCH ×3 (09:00→20:21)
[2018-09-01] MEDS: oxybutynin 5mg tablet PO SCH ×3 (09:00→20:21)
[2018-09-01] MEDS: atorvastatin 20mg tablet PO SCH (09:00)
[2018-09-01] MEDS: midodrine 5mg tablet PO SCH ×3 (09:01→17:38)
[2018-09-01 10:00] VITALS: BP 97/67
[2018-09-01 18:00] VITALS: BP 103/60
[2018-09-01] MEDS: tizanidine 4mg tablet PO PRN (19:14)
[2018-09-02] MEDS: HYDROcodone/acetaminophen 10/325mg tab PO PRN ×6 (01:24→22:45)
[2018-09-02] MEDS: hyoscyamine 0.125mg TAB.SUBL SL SCH ×4 (02:00→20:45)
[2018-09-02 06:00] VITALS: BP 93/52
[2018-09-02] MEDS: lactobacillus rhamnosus 10,000 MMU CELLS/CAPSULE PO SCH ×2 (07:30→17:30)
[2018-09-02] MEDS: K, MAG and/or Phos replacement - Verify level? MC SCH (08:00)
[2018-09-02] MEDS: metoprolol succinate 25mg (24-HOUR) SR. Tablet PO SCH (08:00)
[2018-09-02] MEDS: polyethylene glycol 3350 17gm powd pack PO SCH (08:00)
[2018-09-02] MEDS: oxybutynin 5mg tablet PO SCH ×3 (08:39→20:44)
[2018-09-02] MEDS: simethicone 125mg capsule PO SCH ×3 (08:40→20:44)
[2018-09-02] MEDS: baclofen 10mg tablet PO SCH ×2 (08:40→16:04)
[2018-09-02] MEDS: docusate sod 100mg capsule PO SCH ×2 (08:40→20:44)
[2018-09-02] MEDS: atorvastatin 20mg tablet PO SCH (08:40)
[2018-09-02] MEDS: pantoprazole 40mg Tablet.DR PO SCH ×2 (08:40→17:43)
[2018-09-02] MEDS: midodrine 5mg tablet PO SCH ×3 (08:41→16:00)
[2018-09-02] MEDS: multivitamins, therapeutics tablet PO SCH (08:41)
[2018-09-02] MEDS: clopidogrel 75mg tablet PO SCH (08:41)
[2018-09-02] MEDS: lactose-reduced food (Ensure Enlive) - 237ml bottle PO SCH ×3 (08:49→18:00)
[2018-09-02 10:00] VITALS: BP 88/59
[2018-09-02] MEDS: tizanidine 4mg tablet PO PRN (16:05)
[2018-09-02 18:00] VITALS: BP 102/68
[2018-09-02 22:00] VITALS: BP 97/58
[2018-09-03] MEDS: baclofen 10mg tablet PO SCH ×3 (00:25→16:15)
[2018-09-03] MEDS: midodrine 5mg tablet PO SCH ×4 (00:25→17:49)
[2018-09-03] MEDS: hyoscyamine 0.125mg TAB.SUBL SL SCH ×4 (02:42→20:08)
[2018-09-03] MEDS: HYDROcodone/acetaminophen 10/325mg tab PO PRN ×5 (02:43→20:14)
[2018-09-03] MEDS: tizanidine 4mg tablet PO PRN (05:39)
[2018-09-03] MEDS: ondansetron 4mg rapidly disintigrating tab OGT PRN (05:40)
[2018-09-03 06:00] VITALS: BP 124/68
[2018-09-03] MEDS: pantoprazole 40mg Tablet.DR PO SCH ×2 (07:14→17:42)
[2018-09-03] MEDS: docusate sod 100mg capsule PO SCH ×2 (07:14→20:08)
[2018-09-03] MEDS: simethicone 125mg capsule PO SCH ×3 (07:14→20:08)
[2018-09-03] MEDS: oxybutynin 5mg tablet PO SCH ×3 (07:14→20:08)
[2018-09-03] MEDS: atorvastatin 20mg tablet PO SCH (07:15)
[2018-09-03] MEDS: clopidogrel 75mg tablet PO SCH (07:15)
[2018-09-03] MEDS: multivitamins, therapeutics tablet PO SCH (07:15)
[2018-09-03] MEDS: lactobacillus rhamnosus 10,000 MMU CELLS/CAPSULE PO SCH ×2 (07:19→17:30)
[2018-09-03] MEDS: lactose-reduced food (Ensure Enlive) - 237ml bottle PO SCH ×3 (07:20→17:43)
[2018-09-03] MEDS: metoprolol succinate 25mg (24-HOUR) SR. Tablet PO SCH (07:20)
[2018-09-03] MEDS: polyethylene glycol 3350 17gm powd pack PO SCH (07:20)
[2018-09-03] MEDS: K, MAG and/or Phos replacement - Verify level? MC SCH (07:28)
[2018-09-03] MEDS: mag hydrox/Alum hydrox/simeth 30ml oral suspension PO PRN ×2 (11:27→17:42)
[2018-09-03] MEDS: benzocaine (Anbesol) 12ml bottle MM PRN ×2 (13:52→16:27)
[2018-09-03 16:52] LABS: CLARITY,URINE CLOUDY (Clear); COLOR,URINE YELLOW (Yellow); GLUCOSE, URINE NEGATIVE (Neg); KETONES,URINE NEGATIVE (Neg); LEUKOCYTE ESTERASE ,URINE LARGE (Neg); NITRITES, URINE POSITIVE (Neg); OCCULT BLOOD,URINE TRACE-INTACT (Neg); PROTEIN,URINE NEGATIVE (Neg); UA COLLECTION TYPE FOLEY CATH
[2018-09-03 17:04] LABS: BACTERIA,URINE 1+ /HPF (Neg); MUCUS STRANDS NONE SEEN /LPF (Neg); RBC,URINE 0-2 /HPF (0-2); SQUAMOUS EPITHELIAL CELL,UR NONE SEEN /LPF (FEW); WBC CLUMPS,URINE MODERATE /HPF (NEGATIVE); WBC,URINE TNTC /HPF (0-4)
[2018-09-03 18:00] VITALS: BP 87/52
[2018-09-03 22:00] VITALS: BP 103/62
[2018-09-04] MEDS: baclofen 10mg tablet PO SCH ×3 (00:09→17:55)
[2018-09-04] MEDS: midodrine 5mg tablet PO SCH ×3 (00:09→17:55)
[2018-09-04] MEDS: HYDROcodone/acetaminophen 10/325mg tab PO PRN ×6 (00:13→22:25)
[2018-09-04] MEDS: hyoscyamine 0.125mg TAB.SUBL SL SCH ×4 (02:00→20:13)
[2018-09-04 06:00] VITALS: BP 102/65
[2018-09-04] MEDS: lactobacillus rhamnosus 10,000 MMU CELLS/CAPSULE PO SCH ×2 (07:30→17:30)
[2018-09-04] MEDS: K, MAG and/or Phos replacement - Verify level? MC SCH (08:00)
[2018-09-04] MEDS: lactose-reduced food (Ensure Enlive) - 237ml bottle PO SCH ×3 (08:00→18:00)
[2018-09-04] MEDS: metoprolol succinate 25mg (24-HOUR) SR. Tablet PO SCH (08:00)
[2018-09-04] MEDS: polyethylene glycol 3350 17gm powd pack PO SCH (08:00)
[2018-09-04] MEDS: simethicone 125mg capsule PO SCH ×3 (08:25→20:14)
[2018-09-04] MEDS: clopidogrel 75mg tablet PO SCH (08:25)
[2018-09-04] MEDS: docusate sod 100mg capsule PO SCH ×2 (08:25→20:13)
[2018-09-04] MEDS: atorvastatin 20mg tablet PO SCH (08:25)
[2018-09-04] MEDS: oxybutynin 5mg tablet PO SCH ×3 (08:25→20:14)
[2018-09-04] MEDS: multivitamins, therapeutics tablet PO SCH (08:26)
[2018-09-04] MEDS: pantoprazole 40mg Tablet.DR PO SCH ×2 (08:26→17:55)
[2018-09-04] MEDS ORDERED: CefTRIAXone/D5W-Rocephin 1gm 50 ML IV SCH (08:55)
[2018-09-04] MEDS: ciprofloxacin 0.3% 2.5ml ophthalmic solution LEFTEYE SCH ×2 (13:57→20:14)
[2018-09-04] MEDS: cefpodoxime proxetil 100mg tablet PO SCH ×2 (13:57→17:54)
[2018-09-04] MEDS: tizanidine 4mg tablet PO PRN (13:57)
[2018-09-04 18:00] VITALS: BP 97/65
[2018-09-04 22:00] VITALS: BP 116/79
[2018-09-05] MEDS: baclofen 10mg tablet PO SCH ×3 (00:25→15:50)
[2018-09-05] MEDS: midodrine 5mg tablet PO SCH ×3 (00:25→15:50)
[2018-09-05] MEDS: HYDROcodone/acetaminophen 10/325mg tab PO PRN ×5 (02:16→20:50)
[2018-09-05] MEDS: hyoscyamine 0.125mg TAB.SUBL SL SCH ×4 (02:16→20:51)
[2018-09-05] MEDS: ciprofloxacin 0.3% 2.5ml ophthalmic solution LEFTEYE SCH ×4 (02:16→20:52)
[2018-09-05] MEDS: atorvastatin 20mg tablet PO SCH (07:20)
[2018-09-05] MEDS: docusate sod 100mg capsule PO SCH ×2 (07:21→20:00)
[2018-09-05] MEDS: clopidogrel 75mg tablet PO SCH (07:22)
[2018-09-05] MEDS: pantoprazole 40mg Tablet.DR PO SCH ×2 (07:22→17:14)
[2018-09-05] MEDS: simethicone 125mg capsule PO SCH ×3 (07:22→20:50)
[2018-09-05] MEDS: oxybutynin 5mg tablet PO SCH ×3 (07:22→20:49)
[2018-09-05] MEDS: multivitamins, therapeutics tablet PO SCH (07:23)
[2018-09-05] MEDS: cefpodoxime proxetil 100mg tablet PO SCH ×2 (07:24→17:14)
[2018-09-05] MEDS: metoprolol succinate 25mg (24-HOUR) SR. Tablet PO SCH (07:27)
[2018-09-05] MEDS: polyethylene glycol 3350 17gm powd pack PO SCH (07:27)
[2018-09-05] MEDS: lactose-reduced food (Ensure Enlive) - 237ml bottle PO SCH ×3 (07:27→18:00)
[2018-09-05] MEDS: lactobacillus rhamnosus 10,000 MMU CELLS/CAPSULE PO SCH ×2 (07:27→16:51)
[2018-09-05] MEDS: K, MAG and/or Phos replacement - Verify level? MC SCH (07:28)
[2018-09-05 10:00] VITALS: BP 114/73
[2018-09-05 18:00] VITALS: BP 112/70
[2018-09-05] MEDS: magnesium hydroxide 30ml (MOM) UD suspension PO PRN (20:49)
[2018-09-05 22:00] VITALS: BP 111/67
[2018-09-06] MEDS: baclofen 10mg tablet PO SCH ×3 (00:38→17:24)
[2018-09-06] MEDS: midodrine 5mg tablet PO SCH ×3 (00:39→16:00)
[2018-09-06] MEDS: hyoscyamine 0.125mg TAB.SUBL SL SCH ×4 (00:41→20:51)
[2018-09-06] MEDS: ciprofloxacin 0.3% 2.5ml ophthalmic solution LEFTEYE SCH ×4 (00:41→20:00)
[2018-09-06] MEDS: HYDROcodone/acetaminophen 10/325mg tab PO PRN ×6 (01:20→22:26)
[2018-09-06 05:00] VITALS: BP 123/85
[2018-09-06] MEDS: lactobacillus rhamnosus 10,000 MMU CELLS/CAPSULE PO SCH ×2 (07:30→17:30)
[2018-09-06] MEDS: simethicone 125mg capsule PO SCH ×3 (07:34→20:51)
[2018-09-06] MEDS: docusate sod 100mg capsule PO SCH ×2 (07:35→20:50)
[2018-09-06] MEDS: pantoprazole 40mg Tablet.DR PO SCH ×2 (07:35→17:25)
[2018-09-06] MEDS: multivitamins, therapeutics tablet PO SCH (07:35)
[2018-09-06] MEDS: clopidogrel 75mg tablet PO SCH (07:36)
[2018-09-06] MEDS: oxybutynin 5mg tablet PO SCH ×3 (07:36→20:51)
[2018-09-06] MEDS: atorvastatin 20mg tablet PO SCH (07:36)
[2018-09-06] MEDS: cefpodoxime proxetil 100mg tablet PO SCH (07:36)
[2018-09-06] MEDS: lactose-reduced food (Ensure Enlive) - 237ml bottle PO SCH ×3 (08:00→18:00)
[2018-09-06] MEDS: K, MAG and/or Phos replacement - Verify level? MC SCH (08:00)
[2018-09-06] MEDS: metoprolol succinate 25mg (24-HOUR) SR. Tablet PO SCH (08:00)
[2018-09-06 11:43] VITALS: BP 103/56
[2018-09-06 18:00] VITALS: BP_SYST 113; BP_SYST 131; BP_DIAS 60; BP_DIAS 74
[2018-09-06] MEDS: piperacillin/tazo 3.375gm/50ml 50 ML IV SCH (20:00)
[2018-09-06 22:00] VITALS: BP 93/59
[2018-09-07] MEDS: midodrine 5mg tablet PO SCH ×4 (00:50→23:43)
[2018-09-07] MEDS: baclofen 10mg tablet PO SCH ×4 (00:50→23:42)
[2018-09-07] MEDS: piperacillin/tazo 3.375gm/50ml 50 ML IV SCH ×4 (01:52→20:00)
[2018-09-07] MEDS: ciprofloxacin 0.3% 2.5ml ophthalmic solution LEFTEYE SCH ×4 (02:00→20:00)
[2018-09-07] MEDS: HYDROcodone/acetaminophen 10/325mg tab PO PRN ×7 (02:36→23:41)
[2018-09-07] MEDS: hyoscyamine 0.125mg TAB.SUBL SL SCH ×4 (02:37→20:45)
[2018-09-07 06:29] VITALS: BP 116/79
[2018-09-07] MEDS: pantoprazole 40mg Tablet.DR PO SCH ×2 (07:30→17:09)
[2018-09-07] MEDS: lactobacillus rhamnosus 10,000 MMU CELLS/CAPSULE PO SCH ×2 (07:30→17:09)
[2018-09-07] MEDS: docusate sod 100mg capsule PO SCH ×2 (08:00→20:45)
[2018-09-07] MEDS: lactose-reduced food (Ensure Enlive) - 237ml bottle PO SCH ×3 (08:00→19:38)
[2018-09-07] MEDS: metoprolol succinate 25mg (24-HOUR) SR. Tablet PO SCH (08:00)
[2018-09-07] MEDS: K, MAG and/or Phos replacement - Verify level? MC SCH (08:00)
[2018-09-07] MEDS: simethicone 125mg capsule PO SCH ×3 (09:04→20:45)
[2018-09-07] MEDS: oxybutynin 5mg tablet PO SCH ×3 (09:04→20:44)
[2018-09-07] MEDS: clopidogrel 75mg tablet PO SCH (09:05)
[2018-09-07] MEDS: multivitamins, therapeutics tablet PO SCH (09:05)
[2018-09-07] MEDS: atorvastatin 20mg tablet PO SCH (09:05)
[2018-09-07] MEDS ORDERED: linezolid 600mg tablet PO ONE (10:05)
[2018-09-07 14:12] VITALS: BP 103/52
[2018-09-07] MEDS: cefpodoxime proxetil 100mg tablet PO SCH (17:42)
[2018-09-07 20:00] VITALS: BP 111/68
[2018-09-07] MEDS: linezolid 600mg tablet PO SCH (20:46)
[2018-09-08] VITALS: BP 98/64
[2018-09-08] MEDS: hyoscyamine 0.125mg TAB.SUBL SL SCH ×4 (02:00→20:44)
[2018-09-08] MEDS: piperacillin/tazo 3.375gm/50ml 50 ML IV SCH ×2 (02:00→07:32)
[2018-09-08] MEDS: ciprofloxacin 0.3% 2.5ml ophthalmic solution LEFTEYE SCH ×4 (02:00→20:58)
[2018-09-08] MEDS: HYDROcodone/acetaminophen 10/325mg tab PO PRN ×5 (03:42→20:50)
[2018-09-08 06:51] VITALS: BP 110/76
[2018-09-08] MEDS: multivitamins, therapeutics tablet PO SCH (07:29)
[2018-09-08] MEDS: oxybutynin 5mg tablet PO SCH ×3 (07:29→20:44)
[2018-09-08] MEDS: atorvastatin 20mg tablet PO SCH (07:29)
[2018-09-08] MEDS: simethicone 125mg capsule PO SCH ×3 (07:29→20:44)
[2018-09-08] MEDS: midodrine 5mg tablet PO SCH ×2 (07:30→16:37)
[2018-09-08] MEDS: clopidogrel 75mg tablet PO SCH (07:30)
[2018-09-08] MEDS: baclofen 10mg tablet PO SCH ×2 (07:30→16:37)
[2018-09-08] MEDS: linezolid 600mg tablet PO SCH ×2 (07:31→20:44)
[2018-09-08] MEDS: cefpodoxime proxetil 100mg tablet PO SCH ×2 (07:31→16:37)
[2018-09-08] MEDS: pantoprazole 40mg Tablet.DR PO SCH ×2 (07:31→16:38)
[2018-09-08] MEDS: lactobacillus rhamnosus 10,000 MMU CELLS/CAPSULE PO SCH ×2 (07:31→16:37)
[2018-09-08] MEDS: K, MAG and/or Phos replacement - Verify level? MC SCH (07:32)
[2018-09-08] MEDS: lactose-reduced food (Ensure Enlive) - 237ml bottle PO SCH ×3 (07:32→18:01)
[2018-09-08] MEDS: docusate sod 100mg capsule PO SCH ×2 (07:32→20:00)
[2018-09-08] MEDS: metoprolol succinate 25mg (24-HOUR) SR. Tablet PO SCH (07:36)
[2018-09-08 10:43] VITALS: BP 100/60
[2018-09-08 11:22] LABS: BASOPHILS % (AUTO) 0.4 % (0-1); EOSINOPHILS # (AUTO) 0.5 X10'3 (0-0.9); EOSINOPHILS % (AUTO) 6.1 % (0-6); HEMATOCRIT 35.9 % (35.0-45.0); HEMOGLOBIN 11.8 g/dl (12.0-16.0); LYMPHOCYTES # (AUTO) 2.7 X10'3 (1.1-4.8); MEAN CORPUSCULAR HEMOGLOBIN 26.8 PG (27.0-31.0); MEAN CORPUSCULAR HGB CONC 32.8 % (33.0-36.5); MEAN CORPUSCULAR VOLUME 81.7 FL (78-98); MEAN PLATELET VOLUME 8.1 FL (7.4-10.4); MONOCYTES # (AUTO) 0.6 X10'3 (0-0.9); MONOCYTES % (AUTO) 8.5 % (2-12); NEUTROPHILS # (AUTO) 3.8 X10'3 (1.8-7.7); PLATELET COUNT 512 X10'3 (140-440); RED BLOOD COUNT 4.39 X10'6 (4.20-5.60); RED CELL DISTRIBUTION WIDTH 16.4 % (11.5-14.5); WHITE BLOOD COUNT 7.6 X10'3 (4.5-11.0)
[2018-09-08 11:38] LABS: ALANINE AMINOTRANSFERASE 28 U/L (12-78); ALBUMIN 3.4 G/DL (3.4-5.0); ALBUMIN/GLOBULIN RATIO 0.7 (1.1-1.5); ALKALINE PHOSPHATASE 84 IU/L (46-116); ANION GAP 8 (8-16); ASPARTATE AMINO TRANSFERASE 17 U/L (10-37); BILIRUBIN,TOTAL 0.2 MG/DL (0.1-1.0); BLOOD UREA NITROGEN 16 MG/DL (7-18); BUN/CREATININE RATIO 30.2 (6.6-38.0); CALCIUM 9.5 MG/DL (8.5-10.1); CHLORIDE 104 MMOL/L (99-107); CREATININE 0.53 MG/DL (0.40-0.90); POTASSIUM 4.3 MMOL/L (3.5-5.1); SODIUM 140 MMOL/L (135-145); TOTAL CARBON DIOXIDE 27.6 MMOL/L (24-32); TOTAL PROTEIN 8.6 G/DL (6.4-8.2); eGFR > 90 ML/MIN
[2018-09-08 11:39] LABS: GLUCOSE 107 MG/DL (70-104)
[2018-09-08 18:00] VITALS: BP 95/63
[2018-09-08 22:00] VITALS: BP 102/52
[2018-09-09] MEDS: baclofen 10mg tablet PO SCH ×4 (00:20→23:50)
[2018-09-09] MEDS: midodrine 5mg tablet PO SCH ×4 (00:21→23:50)
[2018-09-09] MEDS: HYDROcodone/acetaminophen 10/325mg tab PO PRN ×6 (00:58→21:41)
[2018-09-09] MEDS: hyoscyamine 0.125mg TAB.SUBL SL SCH ×4 (02:00→20:19)
[2018-09-09] MEDS: ciprofloxacin 0.3% 2.5ml ophthalmic solution LEFTEYE SCH ×4 (02:00→20:00)
[2018-09-09 06:00] VITALS: BP 94/66
[2018-09-09] MEDS: lactobacillus rhamnosus 10,000 MMU CELLS/CAPSULE PO SCH ×2 (07:30→17:30)
[2018-09-09] MEDS: pantoprazole 40mg Tablet.DR PO SCH ×2 (07:40→17:37)
[2018-09-09] MEDS: oxybutynin 5mg tablet PO SCH ×3 (07:41→20:19)
[2018-09-09] MEDS: docusate sod 100mg capsule PO SCH ×2 (07:41→20:00)
[2018-09-09] MEDS: clopidogrel 75mg tablet PO SCH (07:42)
[2018-09-09] MEDS: simethicone 125mg capsule PO SCH ×3 (07:42→20:20)
[2018-09-09] MEDS: multivitamins, therapeutics tablet PO SCH (07:42)
[2018-09-09] MEDS: atorvastatin 20mg tablet PO SCH (07:42)
[2018-09-09] MEDS: linezolid 600mg tablet PO SCH ×2 (07:43→20:19)
[2018-09-09] MEDS: K, MAG and/or Phos replacement - Verify level? MC SCH (07:53)
[2018-09-09] MEDS: lactose-reduced food (Ensure Enlive) - 237ml bottle PO SCH ×3 (07:54→17:50)
[2018-09-09] MEDS: metoprolol succinate 25mg (24-HOUR) SR. Tablet PO SCH (07:55)
[2018-09-09] MEDS: cefpodoxime proxetil 100mg tablet PO SCH ×2 (07:58→17:37)
[2018-09-09 10:01] VITALS: BP 95/57
[2018-09-09 18:00] VITALS: BP 118/71
[2018-09-09 22:00] VITALS: BP 113/67
[2018-09-09 23:48] VITALS: BP 124/66
[2018-09-10] MEDS: HYDROcodone/acetaminophen 10/325mg tab PO PRN ×6 (01:47→21:12)
[2018-09-10] MEDS: ciprofloxacin 0.3% 2.5ml ophthalmic solution LEFTEYE SCH ×4 (02:00→21:12)
[2018-09-10] MEDS: hyoscyamine 0.125mg TAB.SUBL SL SCH ×4 (02:06→21:12)
[2018-09-10 06:00] VITALS: BP 101/71
[2018-09-10] MEDS: lactobacillus rhamnosus 10,000 MMU CELLS/CAPSULE PO SCH (07:30)
[2018-09-10] MEDS: pantoprazole 40mg Tablet.DR PO SCH ×2 (07:41→17:18)
[2018-09-10] MEDS: oxybutynin 5mg tablet PO SCH ×3 (07:41→21:10)
[2018-09-10] MEDS: docusate sod 100mg capsule PO SCH ×2 (07:41→21:11)
[2018-09-10] MEDS: simethicone 125mg capsule PO SCH ×3 (07:41→21:10)
[2018-09-10] MEDS: atorvastatin 20mg tablet PO SCH (07:42)
[2018-09-10] MEDS: multivitamins, therapeutics tablet PO SCH (07:42)
[2018-09-10] MEDS: clopidogrel 75mg tablet PO SCH (07:42)
[2018-09-10] MEDS: midodrine 5mg tablet PO SCH ×2 (07:42→17:18)
[2018-09-10] MEDS: baclofen 10mg tablet PO SCH ×2 (07:43→17:17)
[2018-09-10] MEDS: metoprolol succinate 25mg (24-HOUR) SR. Tablet PO SCH (07:43)
[2018-09-10] MEDS: lactose-reduced food (Ensure Enlive) - 237ml bottle PO SCH ×2 (08:00→13:00)
[2018-09-10] MEDS: linezolid 600mg tablet PO SCH ×2 (08:00→21:11)
[2018-09-10] MEDS: K, MAG and/or Phos replacement - Verify level? MC SCH (08:00)
[2018-09-10] MEDS: cefpodoxime proxetil 100mg tablet PO SCH ×2 (09:38→17:17)
[2018-09-10 10:00] VITALS: BP 94/57
[2018-09-10 18:00] VITALS: BP 110/70
[2018-09-10] MEDS ORDERED: iohexol 300mg/ml 100ml inj. ONE (19:53)
[2018-09-10 22:00] VITALS: BP 90/48
[2018-09-11 00:35] VITALS: BP 124/79
[2018-09-11] MEDS: baclofen 10mg tablet PO SCH ×4 (00:37→23:50)
[2018-09-11] MEDS: HYDROcodone/acetaminophen 10/325mg tab PO PRN ×6 (01:25→21:38)
[2018-09-11] MEDS: hyoscyamine 0.125mg TAB.SUBL SL SCH ×4 (01:26→20:27)
[2018-09-11] MEDS: ciprofloxacin 0.3% 2.5ml ophthalmic solution LEFTEYE SCH ×4 (01:27→20:00)
[2018-09-11 06:00] VITALS: BP 93/51
[2018-09-11] MEDS: K, MAG and/or Phos replacement - Verify level? MC SCH (07:37)
[2018-09-11] MEDS: cefpodoxime proxetil 100mg tablet PO SCH ×2 (07:50→16:33)
[2018-09-11] MEDS: oxybutynin 5mg tablet PO SCH ×3 (07:51→20:27)
[2018-09-11] MEDS: simethicone 125mg capsule PO SCH ×3 (07:51→20:27)
[2018-09-11] MEDS: linezolid 600mg tablet PO SCH ×2 (07:52→20:27)
[2018-09-11] MEDS: multivitamins, therapeutics tablet PO SCH (07:52)
[2018-09-11] MEDS: pantoprazole 40mg Tablet.DR PO SCH ×2 (07:52→16:33)
[2018-09-11] MEDS: docusate sod 100mg capsule PO SCH ×2 (07:52→20:27)
[2018-09-11] MEDS: midodrine 5mg tablet PO SCH ×4 (07:53→23:50)
[2018-09-11] MEDS: clopidogrel 75mg tablet PO SCH (07:54)
[2018-09-11] MEDS: atorvastatin 20mg tablet PO SCH (07:54)
[2018-09-11 10:00] VITALS: BP 119/57
[2018-09-11 18:00] VITALS: BP 98/53
[2018-09-11] MEDS: mag hydrox/Alum hydrox/simeth 30ml oral suspension PO PRN (20:26)
[2018-09-11 22:00] VITALS: BP 111/73
[2018-09-11 23:48] VITALS: BP 115/78
[2018-09-12] MEDS: ciprofloxacin 0.3% 2.5ml ophthalmic solution LEFTEYE SCH ×4 (02:00→20:00)
[2018-09-12] MEDS: hyoscyamine 0.125mg TAB.SUBL SL SCH ×4 (02:07→20:30)
[2018-09-12] MEDS: HYDROcodone/acetaminophen 10/325mg tab PO PRN ×4 (02:10→15:06)
[2018-09-12] MEDS: ondansetron 4mg rapidly disintigrating tab OGT PRN (02:14)
[2018-09-12 06:00] VITALS: BP 111/78
[2018-09-12] MEDS: pantoprazole 40mg Tablet.DR PO SCH ×2 (07:58→16:56)
[2018-09-12] MEDS: oxybutynin 5mg tablet PO SCH ×3 (07:59→20:30)
[2018-09-12] MEDS: baclofen 10mg tablet PO SCH ×2 (07:59→15:05)
[2018-09-12] MEDS: atorvastatin 20mg tablet PO SCH (07:59)
[2018-09-12] MEDS: docusate sod 100mg capsule PO SCH ×2 (07:59→20:30)
[2018-09-12] MEDS: simethicone 125mg capsule PO SCH ×3 (07:59→20:30)
[2018-09-12] MEDS: multivitamins, therapeutics tablet PO SCH (08:00)
[2018-09-12] MEDS: midodrine 5mg tablet PO SCH ×2 (08:00→15:05)
[2018-09-12] MEDS: K, MAG and/or Phos replacement - Verify level? MC SCH (08:00)
[2018-09-12] MEDS: linezolid 600mg tablet PO SCH ×2 (08:00→20:30)
[2018-09-12] MEDS: clopidogrel 75mg tablet PO SCH (08:00)
[2018-09-12] MEDS: cefpodoxime proxetil 100mg tablet PO SCH ×2 (08:01→16:56)
[2018-09-12 10:00] VITALS: BP 128/74
[2018-09-12] MEDS: magnesium hydroxide 30ml (MOM) UD suspension PO PRN (16:56)
[2018-09-12 18:30] VITALS: BP 117/77
[2018-09-12 22:00] VITALS: BP 93/55
[2018-09-13] MEDS: ciprofloxacin 0.3% 2.5ml ophthalmic solution LEFTEYE SCH ×2 (02:00→07:54)
[2018-09-13] MEDS: hyoscyamine 0.125mg TAB.SUBL SL SCH ×2 (02:11→07:50)
[2018-09-13] MEDS: HYDROcodone/acetaminophen 10/325mg tab PO PRN ×3 (02:12→10:14)
[2018-09-13 06:00] VITALS: BP 118/86
[2018-09-13] MEDS: linezolid 600mg tablet PO SCH (07:50)
[2018-09-13] MEDS: docusate sod 100mg capsule PO SCH (07:50)
[2018-09-13] MEDS: pantoprazole 40mg Tablet.DR PO SCH (07:50)
[2018-09-13] MEDS: clopidogrel 75mg tablet PO SCH (07:50)
[2018-09-13] MEDS: multivitamins, therapeutics tablet PO SCH (07:51)
[2018-09-13] MEDS: baclofen 10mg tablet PO SCH ×2 (07:51)
[2018-09-13] MEDS: simethicone 125mg capsule PO SCH (07:51)
[2018-09-13] MEDS: oxybutynin 5mg tablet PO SCH (07:51)
[2018-09-13] MEDS: midodrine 5mg tablet PO SCH ×2 (07:51)
[2018-09-13] MEDS: atorvastatin 20mg tablet PO SCH (07:51)
[2018-09-13] MEDS: cefpodoxime proxetil 100mg tablet PO SCH (07:51)
[2018-09-13] MEDS: K, MAG and/or Phos replacement - Verify level? MC SCH (08:00)
== END 2018-09-13 12:15 | DRG 720 ==
LOC: ER 16:56 → ED HOLD 19:47 → EDBEDREQTM 22:20 → CICU 2S 23:14 → PCU 3S 08-04 14:50 → ORTHO 4S 08-29 16:50
PROVIDERS: ADMIT Internal Medicine; ATTEND Family Medicine
PROC: 02HV33Z Insertion of Infusion Device into Superior Vena Cava, Percutaneous Approach (ICD-10-PCS; 2018-07-30)
PROC: CP1C1ZZ Planar Nuclear Medicine Imaging of Right Lower Extremity using Technetium 99m (Tc-99m) (ICD-10-PCS; 2018-08-09)
PROC: B32T1ZZ Computerized Tomography (CT Scan) of Left Pulmonary Artery using Low Osmolar Contrast (ICD-10-PCS; 2018-08-19)
PROC: B3201ZZ Computerized Tomography (CT Scan) of Thoracic Aorta using Low Osmolar Contrast (ICD-10-PCS; 2018-08-19)
PROC: B32S1ZZ Computerized Tomography (CT Scan) of Right Pulmonary Artery using Low Osmolar Contrast (ICD-10-PCS; 2018-08-19)
PROC: 4A023N7 Measurement of Cardiac Sampling and Pressure, Left Heart, Percutaneous Approach (ICD-10-PCS; principal; 2018-08-20)
PROC: B2111ZZ Fluoroscopy of Multiple Coronary Arteries using Low Osmolar Contrast (ICD-10-PCS; 2018-08-20)
PROC: B2151ZZ Fluoroscopy of Left Heart using Low Osmolar Contrast (ICD-10-PCS; 2018-08-20)
PROC: BQ2R1ZZ Computerized Tomography (CT Scan) of Right Lower Extremity using Low Osmolar Contrast (ICD-10-PCS; 2018-09-10)
DX: A41.9 Sepsis, unspecified organism (principal); I21.4 Non-ST elevation (NSTEMI) myocardial infarction; R65.21 Severe sepsis with septic shock; G82.54 Quadriplegia, C5-C7 incomplete; L89.219 Pressure ulcer of right hip, unspecified stage; K59.2 Neurogenic bowel, not elsewhere classified; E11.69 Type 2 diabetes mellitus with other specified complication; M86.651 Other chronic osteomyelitis, right thigh; M86.652 Other chronic osteomyelitis, left thigh; E86.0 Dehydration; G35 Multiple sclerosis; I25.10 Atherosclerotic heart disease of native coronary artery without angina pectoris; I51.81 Takotsubo syndrome; J43.9 Emphysema, unspecified; B96.4 Proteus (mirabilis) (morganii) as the cause of diseases classified elsewhere; F12.90 Cannabis use, unspecified, uncomplicated; F32.9 Major depressive disorder, single episode, unspecified; F41.9 Anxiety disorder, unspecified; G89.4 Chronic pain syndrome; K21.9 Gastro-esophageal reflux disease without esophagitis; Z60.2 Problems related to living alone; N31.9 Neuromuscular dysfunction of bladder, unspecified; H10.32 Unspecified acute conjunctivitis, left eye; K59.00 Constipation, unspecified; M62.461 Contracture of muscle, right lower leg; M62.838 Other muscle spasm; N32.89 Other specified disorders of bladder; B95.2 Enterococcus as the cause of diseases classified elsewhere; I08.1 Rheumatic disorders of both mitral and tricuspid valves; M62.462 Contracture of muscle, left lower leg; N39.0 Urinary tract infection, site not specified; Z88.1 Allergy status to other antibiotic agents; Z88.6 Allergy status to analgesic agent; Z88.8 Allergy status to other drugs, medicaments and biological substances; Z91.018 Allergy to other foods; Z91.013 Allergy to seafood; Z98.891 History of uterine scar from previous surgery; Z90.49 Acquired absence of other specified parts of digestive tract; Z82.3 Family history of stroke; Z83.3 Family history of diabetes mellitus; Z80.9 Family history of malignant neoplasm, unspecified; Z79.899 Other long term (current) drug therapy; Z82.49 Family history of ischemic heart disease and other diseases of the circulatory system; Z82.41 Family history of sudden cardiac death; Z79.02 Long term (current) use of antithrombotics/antiplatelets; Z74.01 Bed confinement status; Z59.0 Homelessness; Z86.14 Personal history of Methicillin resistant Staphylococcus aureus infection; Z71.6 Tobacco abuse counseling; Z87.891 Personal history of nicotine dependence
CPT/HCPCS: 36415; 36556; 71045; 71275; 73502; 73701; 74018; 76775; 76937; 78315; 80048; 80053; 80061; 80305; 81001; 82533; 82810; 82948; 83605; 83735; 83880; 84145; 84484; 85025; 85610; 85730; 87040; 87070; 87075; 87077; 87088; 87186; 93005; 93306; 93458; 94760; 96365; 96368; 96375; 97110; 97162; 97530; 99152; 99153; 99291; A4620; A6257; A9503; G0378; J0692; J0780; J1170; J1644; J1956; J2060; J2250; J2270; J2405; J2543; J3010; J3490; J7030; J7512; J8597; Q9967